=== PATIENT | female | born 1950 | race Caucasian/White ===

== ENCOUNTER 2019-02-23 18:12 | Inpatient (IN) ==
[2019-02-23] MEDS ORDERED: HYDROmorphone INJ 0.5 MG/0.5 ML SYR IV PRN (18:31)
[2019-02-23] MEDS ORDERED: SODIUM CHLORIDE 0.9% 1000ML 1,000 ML IV SCH (18:45)
[2019-02-23 19:30] LABS: Basophils # (auto) 0.01 K/uL (0-0.2); Basophils % (auto) 0.1 %; Eosinophils # (auto) 0.05 K/uL (0-0.5); Eosinophils % (auto) 0.5 %; Hematocrit (blood only) 32.3 % (37-47); Hemoglobin 10.8 g/dL (12.0-16.0); Immature Granulocytes # (auto) 0.04 K/uL (0.00-0.02); Immature Granulocytes % (auto) 0.4 %; Lymphocytes # (auto) 1.64 K/uL (1.2-3.4); Lymphocytes % (auto) 16.6 %; Mean Corpuscular Hgb Conc 33.4 g/dL (32-36); Mean Corpuscular Volume 81.6 fL (80-100); Monocytes # (auto) 0.55 K/uL (0.11-0.59); Monocytes % (auto) 5.6 %; Neutrophils % (auto) 76.8 %; Platelet Count 205 K/uL (130-400); RDW Standard Deviation 47.9 fL (36.4-46.3); Red Blood Count 3.96 M/uL (4.2-5.4); White Blood Count 9.89 K/uL (4.8-10.8)
--- NOTE | 2019-02-23 19:31 | XRay Report ---
SINGLE VIEW CHEST CLINICAL HISTORY: Fall. Left hip pain. FINDINGS: An AP, portable, upright chest radiograph is compared to study dated 08/17/2015. The examinat ion is degraded by portable technique and patient rotation. The heart is top normal for projection and there is atherosclerotic calcification of the thoracic aorta. The lungs and pleural spaces are cl ear. No pneumothorax is seen. The skeletal structures are osteopenic. The bony thorax is grossly inta ct. IMPRESSION: No active disease in the chest. Electronically signed by: Crow Harris M.D. 02/23/2019 7:30 PM
[2019-02-23 19:40] LABS: Partial Thromboplastin Ratio 0.8; Partial Thromboplastin Time 22.2 Seconds (21.0-31.0)
[2019-02-23 19:46] LABS: BUN Creatinine Ratio 23.4 (10-20); Calcium 9.2 mg/dl (8.5-10.1); Creatinine Clr Calc Pharmacy 47.8 ml/min; Est GFR (African American) 53.7; Est GFR (Non-African American) 46.4
--- NOTE | 2019-02-23 20:22 | XRay Report ---
SINGLE VIEW PELVIS; 2 VIEWS LEFT HIP CLINICAL HISTORY: Fall with left hip pain. FINDINGS: An AP supine view of the pelvis as well as AP and crosstable lateral views of the left hip are obtained. No prior studies are available for comparison at the time of dictation. The skeletal st ructures are osteopenic. There is a mildly distracted intertrochanteric fracture of the left femur wi th overlying soft tissue edema. There are age indeterminant left pubic ring fractures. The right hip appears maintained. Mild to moderate degenerative joint space narrowing seen in the hips. Degenerativ e sclerosis is noted in the sacroiliac joints. There is lumbosacral spondylosis and scoliosis. No bow el obstruction is seen. Moderate colonic fecal retention is observed. Pelvic phleboliths are identifi ed. IMPRESSION: 1. There is a mildly distracted intertrochanteric fracture of the left femur. 2. There are age indeterminant left pubic ring fractures. 3. Osteopenia and degenerative change as above. Electronically signed by: Crow Harris M.D. 02/23/2019 8:21 PM
[2019-02-23 20:38] LABS: Appearance Urine Clear (Clear); Bacteria Urine Automated Negative (Negative); Bilirubin Urine Negative (Negative); Blood Urine Negative (Negative); Color Urine Yellow; Epithelial Cell Urine Auto >30 /lpf (0-5); Glucose Urine UA Negative (Negative); Ketones Urine Negative (Negative); Leukocyte Esterase Urine 1+ (Negative); Nitrite Urine Negative (Negative); Protein Urine Negative (Negative); RBC Urine Automated 0-4 /hpf (0-4); Urobilinogen Urine Negative (Negative)
[2019-02-23] MEDS: HYDROmorphone INJ 0.5 MG/0.5 ML SYR IV PRN ×2 (20:45→21:56)
[2019-02-23 21:17] LABS: T4 Free Thyroxine 1.02 ng/dl (0.8-1.6)
--- NOTE | 2019-02-23 21:28 | History & Physical Report ---
Date of Service February 23, 2019 Assessment & Plan (1) Closed intertrochanteric fracture of left hip: Secondary to mechanical fall hypertension, stable hyperlipidemia on statin Rx DM 2 insulin requiring, elevated lately at home likely related to steroid Rx taper initiated for PMR/polyarthritis Recent outpatient hemoglobin A1c of 7.2 last November 2018 anxiety/mood disorder, at baseline chronic anemia, hemoglobin close to baseline (outpatient work-up showed some degree of iron deficiency) [facility] Orthopedics consult RE left hip fracture (Dr. Mai on for unassigned consults as per ER provider.) No medical contraindication to surgery if recommended by Orthopedics and patient/family agreeable to attendant procedural benefits and risks. Basal insulin adjusted for n.p.o. status after midnight in preparation for possible surgery, ISS BG goal 1 40-1 80, Carb count coverage once diet advanced, update hemoglobin A1c given recent blood sugar elevation at home) DVT prophylaxis. SCDs for now (Recommend pharmacologic anticoagulation pending Orthopedics evaluation.) Full code Patient requests her daughter to be updated of plan of care. Ms. Maria Antonia Romero, [phone]. History of Present Illness Chief Complaint: Fall, left hip pain Primary Care Provider: Jose Alfaro MD History obtained from patient, family, and records. Medical history significant for hypertension, hyperlipidemia, DM 2 insulin requiring, anxiety/mood disorder, chronic anemia (baseline hemoglobin of 11), PMR/inflammatory polyarthritis currently on steroid taper. Recent confinement August 2015 for chest pain. Stress test negative. Patient was walking outside her home today when she lost her balance subsequently landing on her left side. Patient noted left upper extremity and achy left hip pain worse with motion. No chest pain, S OB, syncope/LOC, head trauma. Medical History as above Bad side effects from recent steroid prescription as per patient account. Surgical History : BTL, tonsillectomy/adenectomy Baseline Functionality : Still able to do housework at home without rest/exertional chest pain, S OB prior to injury Family History : Heart disease, depression Personal/Social history : Non-smoker, no EtOH intake, retired [email or web address] employee Allergies Allergy/AdvReac Type Severity Reaction Status Date / Time No Known Allergies Allergy Verified 02/24/19 10:36 Home Medications Home Medications Medication Instructions Recorded Confirmed Type allopurinol 200 mg PO QAM 11/17/18 02/24/19 History aspirin 81 mg PO QAM 11/17/18 02/24/19 History cinnamon bark [Cinnamon] 500 mg PO QAM 11/17/18 02/24/19 History fenofibrate nanocrystallized 48 mg PO QAM 11/17/18 02/24/19 History insulin degludec-liraglutide 40 units SUBCUT HS 11/17/18 02/24/19 History [Xultophy 100/3.6] metformin 1,000 mg PO BID 11/17/18 02/24/19 History rosuvastatin 10 mg PO QAM 11/17/18 02/24/19 History sertraline 100 mg PO QAM 11/17/18 02/24/19 History lisinopril 20 mg PO QAM 02/23/19 02/24/19 History metoprolol tartrate 50 mg PO QAM 02/23/19 02/24/19 History prednisone See Rx Instructions .ROUTE .COMPLEX 02/23/19 02/24/19 History Past Med/Surg History Medical History Diabetes mellitus (Chronic) HTN (hypertension) (Chronic) HLD (hyperlipidemia) (Chronic) CKD (chronic kidney disease), stage III (Chronic) Depression (Chronic) Gout (Chronic) Surgical History S/P tubal ligation (Chronic) S/P tonsillectomy (Chronic) History of colonoscopy (Chronic) "fair prep diveticulosis, polyp path shows adenomatous tissue repeat in 5 years 2010" Family History Other No pertinent family history Social History Preferred Language: Occitan Communication Ability: Effective 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 Beliefs That Will Affect Care: None marital status: Current Living Situation: Alone current occupational status: retired Other Information That Helps Us Care for You: No Feels Safe at Home: Yes Smoking Status: Never smoker Do You Dip or Chew Tobacco: No ; Second Hand Exposure: No ; Tobacco Cessation Education Requested by Patient: No Hx Alcohol Use: Yes Alcohol type: wine Hx Substance Use: No Review of Systems Review of Systems: As per HPI, all 10 systems reviewed, all other ROS negative Physical Exam Physical Exam: GENERAL: uncomfortable, pleasant, no respiratory distress SKIN: Pallor , warm HEENT: Bespectacled, pale palpebral conjunctivae, no ptosis, dry buccal mucosa NECK : Supple, no tenderness CHEST : CTA, no tenderness HEART : RRR, no obvious murmurs ABDOMEN: Some distention, nontender EXTREMITIES : Right hip tenderness and rotation, abrasion left upper extremity, no other conspicuous deformities noted NEUROLOGIC : Coherent, no facial asymmetry, no other gross focality Results & Data Vital Signs (Past 12 Hours) Vital Signs Temp Pulse Pulse Resp BP BP Pulse Ox 02/23/19 20:26 89 16 156/99 H 96 02/23/19 18:25 36.8 C 86 17 117/96 95 Laboratory Results Laboratory Results WBC 9.89 K/uL (4.8-10.8) 02/23/19 19:15 RBC 3.96 M/uL (4.2-5.4) L 02/23/19 19:15 Hgb 10.8 g/dL (12.0-16.0) L 02/23/19 19:15 Hct 32.3 % (37-47) L 02/23/19 19:15 MCV 81.6 fL (80-100) 02/23/19 19:15 MCH 27.3 pg (25-34) 02/23/19 19:15 MCHC 33.4 g/dL (32-36) 02/23/19 19:15 RDW Std Deviation 47.9 fL (36.4-46.3) H 02/23/19 19:15 RDW Coeff of Grabiel 16.0 % (11.5-14.5) H 02/23/19 19:15 Plt Count 205 K/uL (130-400) 02/23/19 19:15 MPV 10.0 fL (7.4-10.4) 02/23/19 19:15 Immature Gran % (Auto) 0.4 % 02/23/19 19:15 Neut % (Auto) 76.8 % 02/23/19 19:15 Lymph % (Auto) 16.6 % 02/23/19 19:15 [place] % (Auto) 5.6 % 02/23/19 19:15 Eos % (Auto) 0.5 % 02/23/19 19:15 Baso % (Auto) 0.1 % 02/23/19 19:15 Immature Gran # (Auto) 0.04 K/uL (0.00-0.02) H 02/23/19 19:15 Neut # (Auto) 7.60 K/uL (1.4-6.5) H 02/23/19 19:15 Lymph # (Auto) 1.64 K/uL (1.2-3.4) 02/23/19 19:15 [place] # (Auto) 0.55 K/uL (0.11-0.59) 02/23/19 19:15 Eos # (Auto) 0.05 K/uL (0-0.5) 02/23/19 19:15 Baso # (Auto) 0.01 K/uL (0-0.2) 02/23/19 19:15 PT 10.0 Seconds (9.0-12.0) 02/23/19 19:15 INR 1.0 (0.9-1.1) 02/23/19 19:15 APTT 22.2 Seconds (21.0-31.0) 02/23/19 19:15 PTT Ratio 0.8 02/23/19 19:15 Sodium 141 mmol/L (136-145) 02/23/19 19:15 Potassium 4.0 mmol/L (3.5-5.1) 02/23/19 19:15 Chloride 107 mmol/L (98-107) 02/23/19 19:15 Carbon Dioxide 27 mmol/L (21-32) 02/23/19 19:15 Anion Gap 7.0 (3-11) 02/23/19 19:15 BUN 28 mg/dl (7-18) H 02/23/19 19:15 Creatinine 1.18 mg/dl (0.6-1.2) 02/23/19 19:15 Est Cr Clr Drug Dosing 47.8 ml/min 02/23/19 19:15 Est GFR ( Amer) 53.7 02/23/19 19:15 Est GFR (Non-Af Amer) 46.4 02/23/19 19:15 BUN/Creatinine Ratio 23.4 (10-20) H 02/23/19 19:15 Glucose 155 mg/dl (70-99) H 02/23/19 19:15 POC Glucose 137 (70-99) H 02/23/19 18:30 Calcium 9.2 mg/dl (8.5-10.1) 02/23/19 19:15 Magnesium 2.1 mg/dl (1.8-2.4) 02/23/19 19:15 TSH 5.150 uIu/ml (0.300-4.500) H 02/23/19 19:15 Free T4 1.02 ng/dl (0.8-1.6) 02/23/19 19:15 Urine Color Yellow 02/23/19 20:05 Urine Appearance Clear (Clear) 02/23/19 20:05 Urine pH 6.0 (4.5-7.5) 02/23/19 20:05 Ur Specific [place] 1.020 (1.000-1.030) 02/23/19 20:05 Urine Protein Negative (Negative) 02/23/19 20:05 Urine Glucose (UA) Negative (Negative) 02/23/19 20:05 Urine Ketones Negative (Negative) 02/23/19 20:05 Urine Blood Negative (Negative) 02/23/19 20:05 Urine Nitrite Negative (Negative) 02/23/19 20:05 Urine Bilirubin Negative (Negative) 02/23/19 20:05 Urine Urobilinogen Negative (Negative) 02/23/19 20:05 Ur Leukocyte Esterase 1+ (Negative) H 02/23/19 20:05 Urine WBC (Auto) 5-10 /hpf (0-5) H 02/23/19 20:05 Urine RBC (Auto) 0-4 /hpf (0-4) 02/23/19 20:05 U Hyaline Cast (Auto) 1-5 /lpf (0-5) 02/23/19 20:05 U Epithel Cells (Auto) >30 /lpf (0-5) H 02/23/19 20:05 Urine Bacteria (Auto) Negative (Negative) 02/23/19 20:05 Blood Type O Positive 02/23/19 19:15 Antibody Screen NEGATIVE 02/23/19 19:15 Diagnostic Findings Hip/pelvis x-ray: 1. There is a mildly distracted intertrochanteric fracture of the left femur. 2. There are age indeterminant left pubic ring fractures. 3. Osteopenia and degenerative change as above. Chest x-ray showed no active disease EKG as per my interpretation : Rate 95, NSR, no ischemia (1) Closed intertrochanteric fracture of left hip Encounter type: initial encounter Fracture alignment: nondisplaced Qualified Code(s): S72.145A - Nondisplaced intertrochanteric fracture of left femur, initial encounter for closed fracture
[2019-02-23] MEDS ORDERED: PROMETHAZINE HCL 12.5 MG in SODIUM CHLORIDE 0.9% 50 ML IV PRN (22:17)
[2019-02-23] MEDS ORDERED: GLUCOSE 40% GEL 15 GM TUBE PO PRN (22:17)
[2019-02-23] MEDS ORDERED: CARBOHYDRATES FOR HYPOGLYCEMIA PO PRN (22:17)
[2019-02-23] MEDS ORDERED: DEXTROSE 50% 50 ML SYRINGE IV PRN (22:17)
[2019-02-23] MEDS ORDERED: NALOXONE HCL 0.4 MG/1 ML VIAL/CARP IV PRN (22:17)
[2019-02-23] MEDS ORDERED: INSULIN ASPART 100 UNITS/ML 3 ML PEN SC SCH (22:17)
[2019-02-23] MEDS ORDERED: GLUCAGON FOR INJ 1 MG VIAL SQ PRN (22:17)
[2019-02-23] MEDS ORDERED: MAGNESIUM HYDROXIDE SUSP 30 ML UDC PO PRN (22:17)
[2019-02-23] MEDS ORDERED: GLUCOSE 10 TABS/TUBE PO PRN (22:17)
[2019-02-23] MEDS ORDERED: BISACODYL 10 MG SUPP PR PRN (22:17)
--- NOTE | 2019-02-23 23:30 | Emergency Department Note ---
Entered by Florin Flores acting as a scribe for ED Provider Note CHIEF COMPLAINT: Fall HISTORY OF PRESENT ILLNESS: The patient is a 69 year old female who presents to the Emergency Room with complaints of constant left hip pain that started after falling outside today just prior to arrival. The patient states she was walking up a driveway when she lost her balance and fell on her left side. The patient notes she could not move after the fall because of the pain so EMS was called. The patient denies any head trauma during the incident. The patient notes that she was in the ED a few days because her sugar was elevated, however when she took it today it was normal. Pt denies LOC, headache, fevers, chills, diaphoresis, visual changes, neck pain, chest pain, breathing difficulties, nausea, vomiting, abdominal pain, back pain, melena, hematochezia, urinary symptoms, numbness, weakness, lymphadenopathy, rash, or other complaints. REVIEW OF SYSTEMS: See HPI for pertinent positives and negatives. A total of ten systems were reviewed and were otherwise negative. PMHx/PSHx: HTN, HLD, CKD, DM, Gout, Depression SOCIAL HISTORY: Patient lives at home. PHYSICAL EXAM: GENERAL: Awake, alert, well-appearing, in no distress HENT: Normocephalic, atraumatic. Oropharynx unremarkable. EYES: Normal conjunctiva. Sclera non-icteric. NECK: Inspection normal. Non-tender. Supple. No nuchal rigidity. FROM. No masses. RESPIRATORY: Clear to auscultation. No wheezes. No rales. Normal respiratory effort. CARDIAC: Normal rate. Normal rhythm. No murmurs. No rubs. Extremities warm and well perfused. Pulses equal. No JVD. GI: Soft, non-distended. No tenderness to palpation. No rebound or guarding. No masses. RECTAL: Deferred. MUSCULOSKELETAL: Chest examination reveals no tenderness. The back is symmetrical on inspection without obvious abnormality. There is no CVA tenderness to palpation. No joint edema. Shortened external rotation of the left leg. Tenderness over the left hip. Abrasion to the left elbow with no gilbert tenderness. LOWER EXTREMITIES: Calves are equal size bilaterally and non-tender. No edema. No discoloration. NEURO: Normal sensorium. No sensory or motor deficits noted. SKIN: No rash or jaundice noted. EMERGENCY DEPARTMENT COURSE: 1825: Past medical records reviewed. The patient was evaluated in room C10, and a complete history and physical examination were performed. 1852: I reevaluated the patient and she would like another dose of pain medication. 2018: I updated the patient on her imaging results. We also discussed the treat ment plan and she fully understands and is agreeable with the plan. 2020: I spoke to Dr. Chester [facility]ist about the patient's case. He will be accepting the patient for further evaluation. Dr. Mai - Orthopedics was made aware of the case. MEDICAL DECISION MAKING: C10 Prior records reviewed. Patient was recently here for hyperglycemia. She notes her sugars have been controlled since discharge. Triage Nursing notes reviewed and agree them. The patient's history was concerning for accidental traumatic injury. Differential diagnosis: Etiologies such as fracture, dislocation, neurovascular compromise, compartment syndrome, soft tissue injury, as well as others were entertained. Physical examination: Consistent with an isolated hip injury. ER treatment provided: IV lock Zofran 4mg IV Dilaudid IV NPO Bedrest On reassessment the patient felt better. Diagnostics interpreted by me: The labs revealed an unremarkable CBC, coags, and chemistry panel. Imaging studies: Chest imaging negative. Left hip x-ray shows an intertrochanteric fracture. The patient has an isolated hip fracture and will need admission to the hospital. Consultation: [facility] was notified of the patient's fracture. A consultation was placed with the [facility]. The case was discussed and diagnostics were reviewed. The patient was evaluated in the ER for further treatment. IMPRESSION: Left intertrochanteric hip fracture PLAN: Being evaluated by hospitalist Jocelyn gutierrez's documentation has been prepared under my direction and personally reviewed by me in its entirety. I confirm that the note above accurately reflects all work, treatment, procedures, and medical decision making performed by me. 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 Beliefs That Will Affect Care: None marital status: Current Living Situation: Alone current occupational status: retired Other Information That Helps Us Care for You: No Feels Safe at Home: Yes Smoking Status: Never smoker Do You Dip or Chew Tobacco: No ; Second Hand Expos ure: No ; Tobacco Cessation Education Requested by Patient: No Hx Alcohol Use: Yes Alcohol type: wine Hx Substance Use: No Results & Data Vital Signs Vital Signs - 24 hr 02/23/19 18:25 02/23/19 20:26 Temperature 36.8 C Temperature Source Oral Sepsis Recent Fever Within 48 Hours No Sepsis Action Taken by Nursing No Action Required Pulse Rate 86 Pulse Rate [Right] 89 Pulse Rhythm [Right] Regular Pulse Strength [Right] Normal Respiratory Rate 17 16 Respiratory Effort / Characteristics Non-Labored Spontaneous Respiratory Depth Normal Blood Pressure 117/96 Blood Pressure [Right Arm] 156/99 H Blood Pressure Mean 103 Blood Pressure Mean [Right Arm] 118 Pulse Oximetry 95 96 Oxygen Delivery Method Room Air Room Air Home Medications Current Medication List: was personally reviewed by me Laboratory Data Attestation: I reviewed the patient's lab results. Result diagrams: 02/23/19 19:15 02/23/19 19:15 Lab Results 02/23/19 02/23/19 02/23/19 Range/Units 18:30 19:15 19:15 WBC 9.89 (4.8-10.8) K/uL RBC 3.96 L (4.2-5.4) M/uL Hgb 10.8 L (12.0-16.0) g/dL Hct 32.3 L (37-47) % MCV 81.6 (80-100) fL MCH 27.3 (25-34) pg MCHC 33.4 (32-36) g/dL RDW Std Deviation 47.9 H (36.4-46.3) fL RDW Coeff of Grabiel 16.0 H (11.5-14.5) % Plt Count 205 (130-400) K/uL MPV 10.0 (7.4-10.4) fL Immature Gran % (Auto) 0.4 % Neut % (Auto) 76.8 % Lymph % (Auto) 16.6 % Terry % (Auto) 5.6 % Eos % (Auto) 0.5 % Baso % (Auto) 0.1 % Immature Gran # (Auto) 0.04 H (0.00-0.02) K/uL Neut # (Auto) 7.60 H (1.4-6.5) K/uL Lymph # (Auto) 1.64 (1.2-3.4) K/uL Terry # (Auto) 0.55 (0.11-0.59) K/uL Eos # (Auto) 0.05 (0-0.5) K/uL Baso # (Auto) 0.01 (0-0.2) K/uL PT 10.0 (9.0-12.0) Seconds INR 1.0 (0.9-1.1) APTT 22.2 (21.0-31.0) Seconds PTT Ratio 0.8 Sodium (136-145) mmol/L Potassium (3.5-5.1) mmol/L Chloride (98-107) mmol/L Carbon Dioxide (21-32) mmol/L Anion Gap (3-11) BUN (7-18) mg/dl Creatinine (0.6-1.2) mg/dl Est Cr Clr Drug Dosing ml/min Est GFR ( Amer) Est GFR (Non-Af Amer) BUN/Creatinine Ratio (10-20) Glucose (70-99) mg/dl POC Glucose 137 H (70-99) Calcium (8.5-10.1) mg/dl Magnesium (1.8-2.4) mg/dl TSH (0.300-4.500) uIu/ml Free T4 (0.8-1.6) ng/dl Urine Color Urine Appearance (Clear) Urine pH (4.5-7.5) Ur Specific [place]branch (1.000-1.030) Urine Protein (Negative) Urine Glucose (UA) (Negative) Urine Ketones (Negative) Urine Blood (Negative) Urine Nitrite (Negative) Urine Bilirubin (Negative) Urine Urobilinogen (Negative) Ur Leukocyte Esterase (Negative) Urine WBC (Auto) (0-5) /hpf Urine RBC (Auto) (0-4) /hpf U Hyaline Cast (Auto) (0-5) /lpf U Epithel Cells (Auto) (0-5) /lpf Urine Bacteria (Auto) (Negative) Blood Type Antibody Screen 02/23/19 02/23/19 02/23/19 Range/Units 19:15 19:15 19:15 WBC (4.8-10.8) K/uL RBC (4.2-5.4) M/uL Hgb (12.0-16.0) g/dL Hct (37-47) % MCV (80-100) fL MCH (25-34) pg MCHC (32-36) g/dL RDW Std Deviation (36.4-46.3) fL RDW Coeff of Grabiel (11.5-14.5) % Plt Count (130-400) K/uL MPV (7.4-10.4) fL Immature Gran % (Auto) % Neut % (Auto) % Lymph % (Auto) % Terry % (Auto) % Eos % (Auto) % Baso % (Auto) % Immature Gran # (Auto) (0.00-0.02) K/uL Neut # (Auto) (1.4-6.5) K/uL Lymph # (Auto) (1.2-3.4) K/uL Terry # (Auto) (0.11-0.59) K/uL Eos # (Auto) (0-0.5) K/uL Baso # (Auto) (0-0.2) K/uL PT (9.0-12.0) Seconds INR (0.9-1.1) APTT (21.0-31.0) Seconds PTT Ratio Sodium 141 (136-145) mmol/L Potassium 4.0 (3.5-5.1) mmol/L Chloride 107 (98-107) mmol/L Carbon Dioxide 27 (21-32) mmol/L Anion Gap 7.0 (3-11) BUN 28 H (7-18) mg/dl Creatinine 1.18 (0.6-1.2) mg/dl Est Cr Clr Drug Dosing 47.8 ml/min Est GFR ( Amer) 53.7 Est GFR (Non-Af Amer) 46.4 BUN/Creatinine Ratio 23.4 H (10-20) Glucose 155 H (70-99) mg/dl POC Glucose (70-99) Calcium 9.2 (8.5-10.1) mg/dl Magnesium 2.1 (1.8-2.4) mg/dl TSH (0.300-4.500) uIu/ml Free T4 (0.8-1.6) ng/dl Urine Color Urine Appearance (Clear) Urine pH (4.5-7.5) Ur Specific Drybranch (1.000-1.030) Urine Protein (Negative) Urine Glucose (UA) (Negative) Urine Ketones (Negative) Urine Blood (Negative) Urine Nitrite (Negative) Urine Bilirubin (Negative) Urine Urobilinogen (Negative) Ur Leukocyte Esterase (Negative) Urine WBC (Auto) (0-5) /hpf Urine RBC (Auto) (0-4) /hpf U Hyaline Cast (Auto) (0-5) /lpf U Epithel Cells (Auto) (0-5) /lpf Urine Bacteria (Auto) (Negative) Blood Type O Positive Antibody Screen NEGATIVE 02/23/19 02/23/19 Range/Units 19:15 20:05 WBC (4.8-10.8) K/uL RBC (4.2-5.4) M/uL Hgb (12.0-16.0) g/dL Hct (37-47) % MCV (80-100) fL MCH (25-34) pg MCHC (32-36) g/dL RDW Std Deviation (36.4-46.3) fL RDW Coeff of Grabiel (11.5-14.5) % Plt Count (130-400) K/uL MPV (7.4-10.4) fL Immature Gran % (Auto) % Neut % (Auto) % Lymph % (Auto) % Terry % (Auto) % Eos % (Auto) % Baso % (Auto) % Immature Gran # (Auto) (0.00-0.02) K/uL Neut # (Auto) (1.4-6.5) K/uL Lymph # (Auto) (1.2-3.4) K/uL Terry # (Auto) (0.11-0.59) K/uL Eos # (Auto) (0-0.5) K/uL Baso # (Auto) (0-0.2) K/uL PT (9.0-12.0) Seconds INR (0.9-1.1) APTT (21.0-31.0) Seconds PTT Ratio Sodium (136-145) mmol/L Potassium (3.5-5.1) mmol/L Chloride (98-107) mmol/L Carbon Dioxide (21-32) mmol/L Anion Gap (3-11) BUN (7-18) mg/dl Creatinine (0.6-1.2) mg/dl Est Cr Clr Drug Dosing ml/min Est GFR ( Amer) Est GFR (Non-Af Amer) BUN/Creatinine Ratio (10-20) Glucose (70-99) mg/dl POC Glucose (70-99) Calcium (8.5-10.1) mg/dl Magnesium (1.8-2.4) mg/dl TSH 5.150 H (0.300-4.500) uIu/ml Free T4 1.02 (0.8-1.6) ng/dl Urine Color Yellow Urine Appearance Clear (Clear) Urine pH 6.0 (4.5-7.5) Ur Specific Drybranch 1.020 (1.000-1.030) Urine Protein Negative (Negative) Urine Glucose (UA) Negative (Negative) Urine Ketones Negative (Negative) Urine Blood Negative (Negative) Urine Nitrite Negative (Negative) Urine Bilirubin Negative (Negative) Urine Urobilinogen Negative (Negative) Ur Leukocyte Esterase 1+ H (Negative) Urine WBC (Auto) 5-10 H (0-5) /hpf Urine RBC (Auto) 0-4 (0-4) /hpf U Hyaline Cast (Auto) 1-5 (0-5) /lpf U Epithel Cells (Auto) >30 H (0-5) /lpf Urine Bacteria (Auto) Negative (Negative) Blood Type Antibody Screen Administered Medications Discontinued Medications Hydromorphone HCl (Dilaudid) 0.25 mg IV Q20M PRN PRN Reason: Moderate Pain (Rating 3,4,5,6) Stop: 03/09/19 18:30 Last Admin: 02/23/19 19:01 Dose: 0.25 mg Documented by: [id number] Hydromorphone HCl (Dilaudid) 0.5 mg IV Q20M PRN PRN Reason: Severe Pain (Rating 7,8,9,10) Stop: 03/09/19 18:30 Last Admin: 02/23/19 21:56 Dose: 0.5 mg Documented by: [id number] Admin: 02/23/19 20:45 Dose: 0.5 mg Documented by: [id number] Sodium Chloride (Nss 1000ml) 1,000 mls @ 75 mls/hr IV .[id number] CARLA Stop: 02/24/19 08:04 Last Admin: 02/23/19 19:01 Dose: 75 mls/hr Documented by: [id number] Imaging Data Radiologist's Impression: Radiology results as stated below per my review and the radiologist's interpretation: SINGLE VIEW CHEST CLINICAL HISTORY: Fall. Left hip pain. FINDINGS: An AP, portable, upright chest radiograph is compared to study dated 08/17/2015. The examination is degraded by portable technique and patient rotation. The heart is top normal for projection and there is atherosclerotic calcification of the thoracic aorta. The lungs and pleural spaces are clear. No pneumothorax is seen. The skeletal structures are osteopenic. The bony thorax is grossly intact. IMPRESSION: No active disease in the chest. Electronically signed by: Crow Harris M.D. 02/23/2019 7:30 PM SINGLE VIEW PELVIS; 2 VIEWS LEFT HIP CLINICAL HISTORY: Fall with left hip pain. FINDINGS: An AP supine view of the pelvis as well as AP and crosstable lateral views of the left hip are obtained. No prior studies are available for comparison at the time of dictation. The skeletal structures are osteopenic. There is a mildly distracted intertrochanteric fracture of the left femur with overlying soft tissue edema. There are age indeterminant left pubic ring fractures. The right hip appears maintained. Mild to moderate degenerative joint space narrowing seen in the hips. Degenerative sclerosis is noted in the sacroiliac joints. There is lumbosacral spondylosis and scoliosis. No bowel obstruction is seen. Moderate colonic fecal retention is observed. Pelvic phleboliths are identified. IMPRESSION: 1. There is a mildly distracted intertrochanteric fracture of the left femur. 2. There are age indeterminant left pubic ring fractures. 3. Osteopenia and degenerative change as above. Electronically signed by: Crow Harris M.D. 02/23/2019 8:21 PM ECG Data Attestation: I personally reviewed and interpreted this ECG as follows: Indication: other (Fall) Rate (beats per minute): 97 Rhythm: normal sinus Findings: no PAC, no PVC, no ST depression, no ST elevation and no ectopy Blood Pressure Blood Pressure Findings: Elevated blood pressure Blood Pressure Disposition: further management by hospitalist Discharge Plan Visit Data *Final* Discharge Date/Time: 02/23/19 21:53 Chief Complaint: Hip Pain Stated Complaint: FALL, L HIP & LEG PAIN ED Provider: Kevon oGodrich Discharge Problem: Closed intertrochanteric fracture of left hip Patient Disposition: Admitted As Inpatient Discharge Instructions Interventions: ED Discharge Assessment Last Done: 02/23/19 21:53 Discharge Problem: Closed intertrochanteric fracture of left hip Qualifiers: Encounter type: initial encounter Fracture alignment: nondisplaced Qualified Code(s): S72.145A - Nondisplaced intertrochanteric fracture of left femur, initial encounter for closed fracture The scribe's documentation has been prepared under my direction and personally reviewed by me in its entirety. I confirm that the note above accurately reflects all work, treatment, procedures, and medical decision making performed by me.
[2019-02-23] MEDS: INSULIN GLARGINE SOLOSTAR 100 UNITS/ML 3 ML PEN SQ SCH (23:34)
[2019-02-23] MEDS: ACETAMINOPHEN 325 MG TAB PO PRN (23:45)
[2019-02-23] MEDS ORDERED: Nursing to Pharmacy Communication ONE (23:51)
[2019-02-24] MEDS ORDERED: SODIUM CHLORIDE 0.45 % 1,000 ML IV SCH
[2019-02-24] MEDS: TRAMADOL HCL 50 MG TABLET PO PRN ×3 (01:12→23:44)
[2019-02-24] MEDS: INSULIN ASPART 100 UNITS/ML 3 ML PEN SC SCH ×4 (06:16→20:53)
[2019-02-24 06:30] LABS: Estimated Average Glucose 186 mg/dl; Hemoglobin A1C 8.1 % (4.5-5.6)
[2019-02-24 07:59] LABS: Basophils # (auto) 0.03 K/uL (0-0.2); Basophils % (auto) 0.4 %; Eosinophils # (auto) 0.17 K/uL (0-0.5); Hematocrit (blood only) 29.1 % (37-47); Hemoglobin 9.5 g/dL (12.0-16.0); Immature Granulocytes # (auto) 0.02 K/uL (0.00-0.02); Immature Granulocytes % (auto) 0.2 %; Lymphocytes # (auto) 1.52 K/uL (1.2-3.4); Lymphocytes % (auto) 17.9 %; Mean Corpuscular Hgb Conc 32.6 g/dL (32-36); Mean Corpuscular Volume 82.2 fL (80-100); Monocytes % (auto) 5.9 %; Neutrophils # (auto) 6.26 K/uL (1.4-6.5); Neutrophils % (auto) 73.6 %; Platelet Count 153 K/uL (130-400); RDW Coefficient of Variation 16.2 % (11.5-14.5); RDW Standard Deviation 48.8 fL (36.4-46.3); Red Blood Count 3.54 M/uL (4.2-5.4)
--- NOTE | 2019-02-24 08:24 | Orthopedic Consultation ---
Date of Consultation February 24, 2019 Assessment & Plan (1) Closed intertrochanteric fracture of left hip: Patient will require a left trochanteric femoral nailing. Per the admitting physician, patient is medically stable for procedure. We will add her onto Dr. Garcia's surgical schedule today. Thank you for this consult. History of Present Illness Reason for Consultation: Left hip fracture Attending Physician: Federico Rasmussen MD History of Present Illness Patient is a 69-year-old white female who lives alone. She is accompanied by her family member. Yesterday she was doing her laundry and was carrying a load of laundry when she lost her balance and fell to the floor. She had immediate pain in her left hip and groin and was unable to ambulate. She denies any shortness of breath, chest pain, lightheadedness prior to or after the fall. She denies any loss of consciousness. She denies hitting her head. She is brought to the emergency room [facility] at [facility] and x-rays were taken. Was found that she had a left intertrochanteric hip fracture. She was admitted by the [facility] Hospitalist service and we have been asked to see her for her left hip fracture. Currently she is awake and alert. And is oriented to person and place. She is having mild pain in the left hip due to fracture. Allergies Allergy/AdvReac Type Severity Reaction Status Date / Time No Known Allergies Allergy Verified 02/23/19 19:06 Home Medications Home Medications Medication Instructions Recorded Confirmed Type allopurinol 200 mg PO QAM 11/17/18 02/23/19 History aspirin 81 mg PO QAM 11/17/18 02/23/19 History cinnamon bark [Cinnamon] 500 mg PO QAM 11/17/18 02/23/19 History fenofibrate nanocrystallized 48 mg PO QAM 11/17/18 02/23/19 History insulin degludec-liraglutide 40 units SUBCUT HS 11/17/18 02/23/19 History [Xultophy 100/3.6] metformin 1,000 mg PO BID 11/17/18 02/23/19 History rosuvastatin 10 mg PO QAM 11/17/18 02/23/19 History sertraline 100 mg PO QAM 11/17/18 02/23/19 History lisinopril 20 mg PO QAM 02/23/19 02/23/19 History metoprolol tartrate 50 mg PO QAM 02/23/19 02/23/19 History prednisone See Rx Instructions .ROUTE .COMPLEX 02/23/19 02/23/19 History Patient History Medical History Diabetes mellitus (Chronic) HTN (hypertension) (Chronic) HLD (hyperlipidemia) (Chronic) CKD (chronic kidney disease), stage III (Chronic) Depression (Chronic) Gout (Chronic) Surgical History S/P tubal ligation (Chronic) S/P tonsillectomy (Chronic) History of colonoscopy (Chronic) "fair prep diveticulosis, polyp path shows adenomatous tissue repeat in 5 years 2010" Family History Other No pertinent family history Social History Preferred Language: Citizen Of [place] Communication Ability: Effective 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 No range of motion is done with the left lower extremity at this time other than her left ankle and toes due to fracture in the hip. She has good range of motion of the left ankle and toes this time. There is no overt areas of bruising over the lateral hip. She has some mild swelling in the left thigh compared to the right. Right lower extremity is essentially unaffected and she is nontender at the right hip knee and ankle. Range of motion within normal limits. She states that she has some slight tingling in both of her toes at this time. Upper extremities are unaffected at this time and she has good range of motion of her shoulders elbows and wrist. And all are nontender. Distal pulses are equal bilaterally of the upper and lower extremities. She has no neck pain on palpation and has good range of motion of the neck at this time. She denies any thoracic or lumbar pain at this time. There is no gross motor or sensory loss seen at this time. Results & Data Vital Signs (Past 12 Hours) Vital Signs Temp Pulse Pulse Resp BP BP Pulse Ox 02/23/19 23:15 36.9 C 90 16 155/69 H 99 02/23/19 22:22 36.7 C 88 18 157/78 H 96 02/23/19 21:53 85 16 119/74 96 02/23/19 20:26 89 16 156/99 H 96 Diagnostic Findings atient: GEN ISIDRO Date: 02/23/19 MR#: [id number]: [address] Acct ID:[id number]: Date: 1950[facility] Zip: [place] [address] Age: 69Location: ED Sex: F Room/Bed: Att Phy: Diagnosis: FALL, L HIP & LEG PAIN Devorah Phy: Jose Alfaro MDService Date: 02/23/19 Fam Phy: Interpreting Phy: Crow Harris MD Admit Phy: Ordering Phy: Kevon Goodrich MD cc: ~ SINGLE VIEW PELVIS; 2 VIEWS LEFT HIP CLINICAL HISTORY: Fall with left hip pain. FINDINGS: An AP supine view of the pelvis as well as AP and crosstable lateral views of the left hip are obtained. No prior studies are available for comparison at the time of dictation. The skeletal structures are osteopenic. There is a mildly distracted intertrochanteric fracture of the left femur with overlying soft tissue edema. There are age indeterminant left pubic ring fractures. The right hip appears maintained. Mild to moderate degenerative joint space narrowing seen in the hips. Degenerative sclerosis is noted in the sacroiliac joints. There is lumbosacral spondylosis and scoliosis. No bowel obstruction is seen. Moderate colonic fecal retention is observed. Pelvic phleboliths are identified. IMPRESSION: 1. There is a mildly distracted intertrochanteric fracture of the left femur. 2. There are age indeterminant left pubic ring fractures. 3. Osteopenia and degenerative change as above. (1) Closed intertrochanteric fracture of left hip Encounter type: initial encounter Fracture alignment: nondisplaced Qualified Code(s): S72.145A - Nondisplaced intertrochanteric fracture of left femur, initial encounter for closed fracture
[2019-02-24] MEDS: predniSONE 2.5 MG TAB PO SCH (08:38)
[2019-02-24] MEDS: SERTRALINE HCL 100 MG TABLET PO SCH (08:38)
[2019-02-24] MEDS: METOPROLOL TARTRATE 50 MG TAB PO SCH ×2 (08:38→20:47)
[2019-02-24] MEDS: FENOFIBRATE NANOCRYSTALLIZED 48 MG TABLET PO SCH (08:38)
[2019-02-24] MEDS: ALLOPURINOL 100 MG TAB PO SCH (08:38)
[2019-02-24] MEDS: LISINOPRIL 20 MG TAB PO SCH (08:38)
[2019-02-24] MEDS: ROSUVASTATIN CALCIUM 10 MG TAB PO SCH (08:38)
[2019-02-24] MEDS: INSULIN GLARGINE SOLOSTAR 100 UNITS/ML 3 ML PEN SQ SCH ×3 (08:40→23:09)
[2019-02-24] MEDS: MoRPHine SULFATE 2 MG/ML CARP IV PRN (08:47)
--- NOTE | 2019-02-24 11:43 | History & Physical Bridge Note ---
Date of Service February 24, 2019 History & Physical Bridge Note I have examined the patient, reviewed the History & Physical and in the interval since the performance of the History & Physical I have noted the following changes of clinical significance: no changes noted
[2019-02-24] MEDS ORDERED: CEFAZOLIN 1,000 MG/7.5 ML IV PUSH IV ONE (11:45)
[2019-02-24] MEDS ORDERED: CEFAZOLIN 1000MG 1,000 MG/7.5 ML SYR IV ONE (12:17)
[2019-02-24] MEDS ORDERED: HYDROmorphone INJ 0.5 MG/0.5 ML SYR IV STA (13:24)
[2019-02-24] MEDS ORDERED: HYDROmorphone INJ 0.5 MG/0.5 ML SYR ONE (13:26)
--- NOTE | 2019-02-24 13:32 | Anesthesiology Consultation ---
Date of Service February 24, 2019 Assessment & Plan (1) Encounter for pre-operative examination: Chart Review Chart Review: Acceptable Risk for Surgery and Patient NOT seen in Pre Admission Testing Consults Requested none medicine is following History Surgery Operation Date: 02/24/19 12:40 Proposed Procedures p Left Trochanteric Nail - Ramiro Garcia MD Height/Weight Height: 5 ft 7 in Weight: 76.9 kg Allergies Allergy/AdvReac Type Severity Reaction Status Date / Time No Known Allergies Allergy Verified 02/24/19 10:36 Medications Home Medications Medication Instructions Recorded Confirmed Last Taken allopurinol 200 mg PO QAM 11/17/18 02/24/19 02/23/19 06:30 aspirin 81 mg PO QAM 11/17/18 02/24/19 02/23/19 06:30 cinnamon bark [Cinnamon] 500 mg PO QAM 11/17/18 02/24/19 02/23/19 06:30 fenofibrate nanocrystallized 48 mg PO QAM 11/17/18 02/24/19 02/23/19 06:30 insulin degludec-liraglutide 40 units SUBCUT HS 11/17/18 02/24/19 Unknown [Xultophy 100/3.6] metformin 1,000 mg PO BID 11/17/18 02/24/19 02/23/19 AM DOSE rosuvastatin 10 mg PO QAM 11/17/18 02/24/19 02/23/19 06:30 sertraline 100 mg PO QAM 11/17/18 02/24/19 02/23/19 06:30 lisinopril 20 mg PO QAM 02/23/19 02/24/19 02/23/19 06:30 metoprolol tartrate 50 mg PO QAM 02/23/19 02/24/19 02/23/19 06:30 prednisone See Rx Instructions .ROUTE .COMPLEX 02/23/19 02/24/19 02/23/19 06:30 10 MG Active Medications Generic Name Dose Route Start Last Admin Trade Name Freq PRN Reason Stop Dose Admin Acetaminophen 650 mg 02/23/19 22:17 02/23/19 23:45 Tylenol PO 03/25/19 22:16 650 mg Q4H PRN Administration pain/fever Allopurinol 200 mg 02/24/19 09:00 02/24/19 08:38 Zyloprim PO 03/26/19 08:59 200 mg QAM CARLA Administration Fenofibrate 48 mg 02/24/19 09:00 02/24/19 08:38 Fenofibrate PO 03/26/19 08:59 48 mg QAM CARLA Administration Sodium Chloride 1,000 mls @ 40 mls/hr 02/24/19 00:00 02/24/19 01:05 1/2 Nss IV 03/26/19 00:00 40 mls/hr .Q24H CARLA Administration Insulin Aspart 0 units 02/24/19 06:00 02/24/19 11:30 Novolog Flexpen SC 03/26/19 05:59 Not Given Q6 CARLA Insulin Glargine 10 units 02/23/19 22:17 02/24/19 08:40 Lantus Solostar Pen SQ 03/25/19 22:16 10 units BID CARLA Administration Lisinopril 20 mg 02/24/19 09:00 02/24/19 08:38 Zestril PO 03/26/19 08:59 20 mg QAM CARLA Administration Metoprolol Tartrate 50 mg 02/24/19 09:00 02/24/19 08:38 Lopressor PO 03/26/19 08:59 50 mg BID CARLA Administration Morphine Sulfate 2 mg 02/23/19 22:17 02/24/19 08:47 Morphine Sulfate IV 03/09/19 22:16 2 mg Q2H PRN Administration MODERATE Pain (Scale 4,5,6) Prednisone 10 mg 02/24/19 09:00 02/24/19 08:38 Prednisone PO 04/14/19 08:59 10 mg DAILY CARLA Administration Taper Rosuvastatin Calcium 10 mg 02/24/19 09:00 02/24/19 08:38 Crestor PO 03/26/19 08:59 10 mg QAM CARLA Administration Sertraline HCl 100 mg 02/24/19 09:00 02/24/19 08:38 Zoloft PO 03/26/19 08:59 100 mg QAM CARLA Administration Tramadol HCl 25 - 50 mg 02/23/19 22:17 02/24/19 07:01 Ultram PO 03/25/19 22:16 50 mg Q4H PRN Administration Pain NPO Date Last Intake of Fluids: 02/24/19 Time Last Intake of Fluids: 08:40 Last Intake of Fluids Comment: sips with meds Date Last Intake of Solids: 02/23/19 Time Last Intake of Solids: 21:00 Past Medical History Medical History Diabetes mellitus (Chronic) HTN (hypertension) (Chronic) HLD (hyperlipidemia) (Chronic) CKD (chronic kidney disease), stage III (Chronic) Depression (Chronic) Gout (Chronic) Past Family History Family History Other No pertinent family history Past Surgical History Surgical History S/P tubal ligation (Chronic) S/P tonsillectomy (Chronic) History of colonoscopy (Chronic) "fair prep diveticulosis, polyp path shows adenomatous tissue repeat in 5 years 2010" Social History Smoking Status: Never smoker Do You Dip or Chew Tobacco: No Hx Alcohol Use: Yes Alcohol type: wine alcohol intake frequency: holidays/special occasions only Hx Substance Use: No Physical Exam Vital Signs Last Vital Signs Temp 36.9 C 02/24/19 10:37 Pulse 101 H 02/24/19 10:37 Resp 20 02/24/19 10:37 BP 136/84 02/24/19 10:37 Pulse Ox 95 02/24/19 10:37 Testing Laboratory Results 02/24/19 07:46 02/23/19 19:15 PT 10.0 Seconds (9.0-12.0) 02/23/19 19:15 INR 1.0 (0.9-1.1) 02/23/19 19:15 APTT 22.2 Seconds (21.0-31.0) 02/23/19 19:15 Hemoglobin A1c 8.1 % (4.5-5.6) H 02/23/19 19:15 Urine Color Yellow 02/23/19 20:05 Urine Appearance Clear (Clear) 02/23/19 20:05 Urine pH 6.0 (4.5-7.5) 02/23/19 20:05 Ur Specific [place] 1.020 (1.000-1.030) 02/23/19 20:05 Urine Protein Negative (Negative) 02/23/19 20:05 Urine Glucose (UA) Negative (Negative) 02/23/19 20:05 Urine Ketones Negative (Negative) 02/23/19 20:05 Urine Nitrite Negative (Negative) 02/23/19 20:05 Ur Leukocyte Esterase 1+ (Negative) H 02/23/19 20:05 Urine WBC (Auto) 5-10 /hpf (0-5) H 02/23/19 20:05 Urine RBC (Auto) 0-4 /hpf (0-4) 02/23/19 20:05 U Hyaline Cast (Auto) 1-5 /lpf (0-5) 02/23/19 20:05 U Epithel Cells (Auto) >30 /lpf (0-5) H 02/23/19 20:05 Urine Bacteria (Auto) Negative (Negative) 02/23/19 20:05 Blood Type O Positive 02/23/19 19:15 Antibody Screen NEGATIVE 02/23/19 19:15 02/24/19 02/24/19 12:43 06:00 POC Glucose 147 H 177 H Electrocardiogram Date: 02/23/19 Findings: + NSR @ (97) Chest X-Ray Date: 02/23/19 SINGLE VIEW CHEST CLINICAL HISTORY: Fall. Left hip pain. FINDINGS: An AP, portable, upright chest radiograph is compared to study dated 08/17/2015. The examination is degraded by portable technique and patient rotation. The heart is top normal for projection and there is atherosclerotic calcification of the thoracic aorta. The lungs and pleural spaces are clear. No pneumothorax is seen. The skeletal structures are osteopenic. The bony thorax is grossly intact. IMPRESSION: No active disease in the chest. Electronically signed by: Crow Harris M.D. 02/23/2019 7:30 PM Dictated: 02/23/191928 Transcribed: 02/23/19[address] head/brain wo con CT DOSE: 614.27 mGy.cm HISTORY: Mental status change desai TECHNIQUE: Multiaxial CT images of the head were performed without the use of intravenous contrast. A dose lowering technique was utilized adhering to the principles of ALARA. Comparison: 10/15/2006 Findings: The paranasal sinuses and mastoid air cells are clear. The calvarium and skull base are intact. The ventricles and sulci are within normal limits. There is no mass, hematoma, midline shift, or acute infarct. Impression: No acute intracranial abnormality.
[2019-02-24] MEDS ORDERED: fentaNYL citrate 100 MCG/2 ML VIAL ONE (14:25)
[2019-02-24] MEDS ORDERED: KETAMINE HCL INJ 50 MG/ML 10 ML VIAL ONE (14:25)
[2019-02-24] MEDS ORDERED: MIDAZOLAM HCL 1 MG/ML 2ML VIAL ONE (14:25)
[2019-02-24] MEDS ORDERED: ONDANSETRON INJ 2 MG/ML 2 ML VIAL IV PRN (14:30)
[2019-02-24] MEDS ORDERED: LABETALOL HCL IV 5 MG/ML 20ML IV PRN (14:30)
[2019-02-24] MEDS ORDERED: ATROPINE SULFATE 0.1 MG/ML 10ML SYR IV PRN (14:30)
[2019-02-24] MEDS ORDERED: PHENYLEPHRINE 100MCG/ML 5ML SYR IV PRN (14:30)
[2019-02-24] MEDS ORDERED: fentaNYL citrate 100 MCG/2 ML VIAL IV PRN (14:30)
[2019-02-24] MEDS ORDERED: ePHEDrine sulfate 50 MG/ML AMP IV PRN (14:30)
[2019-02-24] MEDS ORDERED: HYDROmorphone INJ 1 MG/ML SYRINGE IV PRN (14:30)
[2019-02-24] MEDS ORDERED: DEXAMETHASONE SOD INJ 4 MG/ML VIAL ONE (15:45)
[2019-02-24] MEDS ORDERED: ONDANSETRON INJ 2 MG/ML 2 ML VIAL ONE (15:45)
[2019-02-24] MEDS ORDERED: GLYCOPYRROLATE 0.2 MG/ML VIAL ONE (15:45)
[2019-02-24] MEDS ORDERED: PROPOFOL IV EMULSION 10 MG/ML 20 ML VIAL IV ONE (15:45)
[2019-02-24] MEDS ORDERED: LIDOCAINE HCL 2% 2 ML VIAL/AMP(20MG/ML) INFIL ONE (15:45)
[2019-02-24] MEDS ORDERED: BUPIVACAINE/EPINEPHRINE 0.5% MPF 1:200,000 30 ML VIAL ONE (15:51)
--- NOTE | 2019-02-24 16:45 | Fluoroscopy Report ---
FL hip LT 2-3V CLINICAL HISTORY: With a femoral neck now and interlocking medullary quyen. Status post internal fixati on COMPARISON STUDY: 02/23/2019 FLUOROSCOPY TIME: 92 seconds. NUMBER OF FLUOROSCOPIC IMAGES: 4 FINDINGS: 4 intraoperative fluoroscopic spot images demonstrate internal fixation of an intratrochant thaddeus left hip fracture IMPRESSION: Internally fixated intertrochanteric left hip fracture. Electronically signed by: Mejia Glasgow M.D. 02/24/2019 4:44 PM
--- NOTE | 2019-02-24 16:59 | Operative Report ---
Post Operative Report Pre & Post Diagnosis Operation Date: 02/24/19 12:40 Pre-Op Diagnosis: Closed intertrochantric Left hip fracture Post-Op Diagnosis: Closed intertrochantric left hip fracture Procedure Operation Date: 02/24/19 12:40 Actual Procedures p Left Trochanteric Nail insertion (Left) - Ramiro Garcia MD Surgeon Ramiro Garcia MD Director Of Scientific Research None Estimated Blood Loss 25 Findings Consistent with Post-Op Diagnosis Specimens None Anesthesia Type Spinal MAC Disposition Accompanied Patient To Recovery: No Disposition: Recovery Room Indications The patient is a 69-year-old female sustained a fall onto left hip. Sustained a left intertrochanteric fracture. Given the nature of the injury I recommended open reduction internal fixation. She wishes to proceed. Description of Procedure Risks benefits and alternatives of surgery including but not limited to infection, DVT, PE, pain, stiffness, need for surgery, damage to blood vessels, damage to nerves or risks of anesthesia, were discussed with the patient and her family and they wished to proceed. Patient was identified in the laterality was confirmed and marked. They received a preoperative antibiotic. The patient was transferred to the fracture table. The operative limb was placed in traction and the well leg was placed in a well leg sandhu that was well-padded. The arms were well-padded and placed out of the way of the surgical field. I confirmed reduction of the fracture with fluoroscopy with the patient's fracture table and made adjustments to fracture table alignment is necessary to reduce the fracture appropriately. The hip was then prepped and draped in the usual standard manner with ChloraPrep. I made a longitudinal incision proximal to the greater trochanter. I sharply incised through the skin and then used Bovie electrocautery to achieve hemostasis. I incised through the fascia and then bluntly dissected down to the tip of the greater trochanter. Under fluoroscopic guidance I placed a guide pin into the greater trochanter and ensured proper placement on both AP and lateral fluoroscopy views. Once I was satisfied with the position of the guide. I advanced this distally. I then overreamed with the 17 mm proximal reamer. I then placed a Synthes trochanteric fixation nail into position. The size of the nail was a short nail. Then I placed the guide arm onto the nail insertion device made a stab incision more distally and then placed the drill guide for the helical blade. I adjusted the position of the nail as necessary to ensure that the guidepin was center center in the femoral head. Once I was satisfied with the position of the pin advanced it to the appropriate position of the femoral head. I then measured and then reamed the lateral cortex and then reamed down into the femoral head. I then inserted a size [address] I then locked the set screw proximally and then compressed the fracture. Then through a stab incision I placed a interlocking screw through the drill guide. I confirmed hardware placement and maintenance of reduction on AP and lateral fluoroscopy views. Wounds were then thoroughly irrigated. The fascia was closed with interrupted #1 Vicryl suture. Subcutaneous tissues closed with interrupted 2-0 Vicryl suture and the skin with ludmila. Sterile dressings applied. All needle and sponge counts were correct at the end of the procedure the patient was transferred to the PACU in stable condition without apparent complication. I attest to the content of the Intraoperative Record and any orders documented therein. Any exceptions are noted below.
[2019-02-24] MEDS ORDERED: NALOXONE HCL 0.4 MG/1 ML VIAL/CARP IV PRN (17:48)
--- NOTE | 2019-02-24 17:50 | Anesthesiology Progress Note ---
Date of Service February 24, 2019 Anesthesia Post Procedure Vital Signs Vital Signs: Temp Pulse Pulse Pulse Resp BP BP 02/24/19 17:30 98.8 F 72 16 128/63 02/24/19 17:20 98.8 F 74 14 117/69 02/24/19 17:10 73 14 111/75 02/24/19 17:00 75 14 130/61 02/24/19 16:52 98.6 F 83 16 115/55 L 02/24/19 10:37 98.4 F 101 H 20 136/84 02/24/19 07:28 98.1 F 98 H 18 153/79 H 02/23/19 23:15 98.4 F 90 16 155/69 H 02/23/19 22:22 98.1 F 88 18 157/78 H 02/23/19 21:53 85 16 119/74 02/23/19 20:26 89 16 156/99 H 02/23/19 18:25 98.2 F 86 17 117/96 Pulse Ox 02/24/19 17:30 100 02/24/19 17:20 100 02/24/19 17:10 99 02/24/19 17:00 100 02/24/19 16:52 98 02/24/19 10:37 95 02/24/19 07:28 97 02/23/19 23:15 99 02/23/19 22:22 96 02/23/19 21:53 96 02/23/19 20:26 96 02/23/19 18:25 95 Pain Intensity Left Hip: Pain Intensity: 0 Transfer of Care Handoff Completed per policy Notes Mental Status: alert / awake / arousable and participated in evaluation Patient Amnestic to Procedure: Yes Nausea / Vomiting: adequately controlled Pain: adequately controlled Airway Patency, RR, SpO2: stable & adequate BP & HR: stable & adequate Hydration State: stable & adequate Neuraxial Anesthesia: was administered and sensory block is resolving Anesthetic Complications: no major complications apparent and Pt Satisfied with anesthetic care
[2019-02-24] MEDS ORDERED: SODIUM CHLORIDE 0.9% 1000ML 1,000 ML IV SCH (18:15)
--- NOTE | 2019-02-24 18:15 | Hospitalist Progress Note ---
Date of Service February 24, 2019 Assessment & Plan (1) Closed intertrochanteric fracture of left hip: -Secondary to mechanical fall - 02/24/19 s/p Left Trochanteric Nail insertion (Left) - Ramiro Garcia MD -post-operative state: patient returns to medical slade. she is not able to feel her lower extremities bilaterally at this time. she is awake and in good spirits and alert and responding to questions appropriately. 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 Maria Antonia Romero [phone]. Subjective patient returns to medical slade s/p Left Trochanteric Nail insertion . she is not able to feel her lower extremities bilaterally at this time. she is awake and in good spirits and alert and responding to questions appropriately. expect that the numbness will go away as she is further removed from effects of anesthesia. has lafleur. on nasal cannula. no chest pain. no abdomen pain. she is eager to eat. no headache. no dizziness Physical Exam Constitutional: comfortable Eyes: PERRL, conjunctivae normal, anicteric sclerae EOM intact bilaterally ENMT: external ear and nose normal, oropharynx normal Neck: trachea midline, no thyromegaly normal visual inspection Respiratory: normal respiratory effort, lungs clear to auscultation Cardiovascular: RRR, no murmur, no edema Gastrointestinal (Abdomen): normal bowel sounds, soft, nontender, no hepatosplenomegaly Neurologic: PERRL, EOMI, accommodation nl, no face palsy, no dysarthria numbness of bilateral lower extremities, ice over left thigh, dressing over left thigh Psychiatric: A+Ox3, euthymic affect Genitourinary: lafleur Results & Data Vital Signs (Past 12 Hours) Vital Signs Temp Pulse Pulse Resp BP Pulse Ox 02/24/19 17:48 37.0 C 73 118/72 100 02/24/19 17:30 37.1 C 72 16 128/63 100 02/24/19 17:20 37.1 C 74 14 117/69 100 02/24/19 17:10 73 14 111/75 99 02/24/19 17:00 75 14 130/61 100 02/24/19 16:52 37.0 C 83 16 115/55 L 98 02/24/19 10:37 36.9 C 101 H 20 136/84 95 02/24/19 07:28 36.7 C 98 H 18 153/79 H 97 (1) Closed intertrochanteric fracture of left hip Encounter type: initial encounter Fracture alignment: nondisplaced Qualified Code(s): S72.145A - Nondisplaced intertrochanteric fracture of left femur, initial encounter for closed fracture
[2019-02-24] MEDS ORDERED: Nursing to Pharmacy Communication ONE (18:56)
[2019-02-24] MEDS: SENNA 8.6 MG TAB PO SCH (20:49)
[2019-02-24] MEDS: ASPIRIN 81 MG ECTAB PO SCH (20:49)
[2019-02-24] MEDS: CEFAZOLIN 1000MG 1,000 MG/7.5 ML SYR IV SCH (22:28)
[2019-02-25] MEDS: MoRPHine SULFATE 2 MG/ML CARP IV PRN (01:23)
[2019-02-25 05:57] LABS: Basophils # (auto) 0.02 K/uL (0-0.2); Basophils % (auto) 0.1 %; Eosinophils # (auto) 0.16 K/uL (0-0.5); Eosinophils % (auto) 1.1 %; Hematocrit (blood only) 28.2 % (37-47); Hemoglobin 9.3 g/dL (12.0-16.0); Immature Granulocytes # (auto) 0.04 K/uL (0.00-0.02); Immature Granulocytes % (auto) 0.3 %; Lymphocytes # (auto) 1.63 K/uL (1.2-3.4); Lymphocytes % (auto) 11.5 %; Mean Platelet Volume 9.6 fL (7.4-10.4); Monocytes # (auto) 0.86 K/uL (0.11-0.59); Monocytes % (auto) 6.1 %; Neutrophils # (auto) 11.42 K/uL (1.4-6.5); Neutrophils % (auto) 80.9 %; Platelet Count 191 K/uL (130-400); RDW Coefficient of Variation 16.1 % (11.5-14.5); RDW Standard Deviation 48.1 fL (36.4-46.3); Red Blood Count 3.44 M/uL (4.2-5.4); White Blood Count 14.13 K/uL (4.8-10.8)
[2019-02-25] MEDS: CEFAZOLIN 1000MG 1,000 MG/7.5 ML SYR IV SCH (06:26)
[2019-02-25 06:27] LABS: BUN Creatinine Ratio 17.5 (10-20); Calcium 8.5 mg/dl (8.5-10.1); Creatinine Clr Calc Pharmacy 42.4 ml/min; Est GFR (African American) 47.8; Est GFR (Non-African American) 41.2; Potassium 3.5 mmol/L (3.5-5.1)
[2019-02-25] MEDS ORDERED: POTASSIUM CHLORIDE 20 MEQ TABCR PO STA (06:55)
[2019-02-25] MEDS ORDERED: SODIUM CHLORIDE 0.9% 1000ML 1,000 ML IV SCH (07:00)
[2019-02-25] MEDS: TRAMADOL HCL 50 MG TABLET PO PRN (07:48)
[2019-02-25] MEDS: ASPIRIN 81 MG ECTAB PO SCH ×2 (08:52→20:18)
[2019-02-25] MEDS: SERTRALINE HCL 100 MG TABLET PO SCH (08:52)
[2019-02-25] MEDS: METOPROLOL TARTRATE 50 MG TAB PO SCH ×2 (08:52→20:18)
[2019-02-25] MEDS: ROSUVASTATIN CALCIUM 10 MG TAB PO SCH (08:52)
[2019-02-25] MEDS: ALLOPURINOL 100 MG TAB PO SCH (08:52)
[2019-02-25] MEDS: predniSONE 2.5 MG TAB PO SCH (08:53)
[2019-02-25] MEDS: FENOFIBRATE NANOCRYSTALLIZED 48 MG TABLET PO SCH (08:53)
[2019-02-25] MEDS: LISINOPRIL 20 MG TAB PO SCH (08:53)
[2019-02-25] MEDS: INSULIN GLARGINE SOLOSTAR 100 UNITS/ML 3 ML PEN SQ SCH ×2 (08:54→21:13)
[2019-02-25] MEDS: INSULIN ASPART 100 UNITS/ML 3 ML PEN SC SCH ×4 (08:57→21:13)
--- NOTE | 2019-02-25 10:05 | Orthopedic Progress Note ---
Date of Service February 25, 2019 Assessment & Plan (1) Closed intertrochanteric fracture of left hip: Postop day 1 status post left TFN PT/OT protocol. Weightbearing as tolerated. DVT prophylaxis with aspirin twice daily, ARMAAN Grady Pain management-patient complaining of increased pain today post surgery. We will add oxycodone 1 tablet every 6 hours as needed. Patient also has IV morphine ordered. Tramadol does not appear to be covering her pain. Swelling of the left lower extremity likely due to fracture and surgical intervention. Watch for now. Subjective Postop day 1 status post left TFN Patient is sitting up in bed. She is awake and alert. She states she is having mild to moderate pain in the left lower extremity. She is also having some low back pain. She is concerned about swelling in her lower extremity. She denies any shortness of breath, chest pain, lightheadedness. Physical Exam Physical Exam: Dressings are clean, dry, and intact. Calves are soft nontender. She has some tenderness of the left ankle and has some slightly decreased range of motion due to discomfort. She has some noted edema of the left lower extremity compared to the right. Overall, soft tissues are soft and nontender on palpation. Results & Data Vital Signs (Past 12 Hours) Vital Signs Temp Pulse Resp BP Pulse Ox 02/25/19 08:15 36.6 C 78 16 128/65 98 02/25/19 03:50 37.3 C 98 H 16 135/71 97 02/24/19 22:26 36.9 C 96 H 16 111/67 93 (1) Closed intertrochanteric fracture of left hip Encounter type: initial encounter Fracture alignment: nondisplaced Qualified Code(s): S72.145A - Nondisplaced intertrochanteric fracture of left femur, in itial encounter for closed fracture
[2019-02-25] MEDS: OXYCODONE HCL IR 5 MG TAB (IMMEDIATE RELEASE) PO PRN ×2 (10:16→17:04)
--- NOTE | 2019-02-25 10:54 | Anesthesiology Progress Note ---
Date of Service February 25, 2019 Anesthesia Post Procedure Vital Signs Vital Signs: Temp Pulse Pulse Resp BP Pulse Ox 02/25/19 08:15 36.6 C 78 16 128/65 98 02/25/19 03:50 37.3 C 98 H 16 135/71 97 02/24/19 22:26 36.9 C 96 H 16 111/67 93 02/24/19 20:45 36.6 C 83 18 123/69 97 02/24/19 19:43 36.4 C L 84 18 102/64 95 02/24/19 18:55 36.7 C 86 18 133/73 100 02/24/19 18:15 36.3 C L 75 16 124/74 94 02/24/19 17:48 37.0 C 73 118/72 100 02/24/19 17:30 37.1 C 72 16 128/63 100 02/24/19 17:20 37.1 C 74 14 117/69 100 02/24/19 17:10 73 14 111/75 99 02/24/19 17:00 75 14 130/61 100 02/24/19 16:52 37.0 C 83 16 115/55 L 98 Pain Intensity Left Hip: Pain Intensity: 8 Notes Mental Status: alert / awake / arousable and participated in evaluation Patient Amnestic to Procedure: Yes Nausea / Vomiting: adequately controlled Pain: adequately controlled Airway Patency, RR, SpO2: stable & adequate BP & HR: stable & adequate Neuraxial Anesthesia: was administered and sensory block resolved Anesthetic Complications: no major complications apparent
--- NOTE | 2019-02-25 12:19 | Anesthesiology Progress Note ---
Date of Service February 25, 2019 Anesthesia Post Procedure Vital Signs Vital Signs: Temp Pulse Pulse Resp BP Pulse Ox 02/25/19 11:26 36.8 C 80 16 109/63 02/25/19 08:15 36.6 C 78 16 128/65 98 02/25/19 03:50 37.3 C 98 H 16 135/71 97 02/24/19 22:26 36.9 C 96 H 16 111/67 93 02/24/19 20:45 36.6 C 83 18 123/69 97 02/24/19 19:43 36.4 C L 84 18 102/64 95 02/24/19 18:55 36.7 C 86 18 133/73 100 02/24/19 18:15 36.3 C L 75 16 124/74 94 02/24/19 17:48 37.0 C 73 118/72 100 02/24/19 17:30 37.1 C 72 16 128/63 100 02/24/19 17:20 37.1 C 74 14 117/69 100 02/24/19 17:10 73 14 111/75 99 02/24/19 17:00 75 14 130/61 100 02/24/19 16:52 37.0 C 83 16 115/55 L 98 Pain Intensity Left Hip: Pain Intensity: 8 Notes Mental Status: alert / awake / arousable Patient Amnestic to Procedure: Yes Nausea / Vomiting: adequately controlled Pain: adequately controlled Airway Patency, RR, SpO2: stable & adequate Hydration State: stable & adequate Neuraxial Anesthesia: was administered and sensory block resolved Anesthetic Complications: no major complications apparent and Pt Satisfied with anesthetic care
--- NOTE | 2019-02-25 15:57 | Hospitalist Progress Note ---
Date of Service February 25, 2019 Assessment & Plan (1) Closed intertrochanteric fracture of left hip: -Secondary to mechanical fall - 02/24/19 s/p Left Trochanteric Nail insertion (Left) - Ramiro Garcia MD -post-operative state on 02/24/19: patient returns to medical slade. she is not able to feel her lower extremities bilaterally at this time. she is awake and in good spirits and alert and responding to questions appropriately. 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 Maria Antonia Romero [phone]. Subjective Patient having difficulties with physical therapy today as per nurse. The numbness of the legs from yesterday is gone as per patient. She is able to wiggle her toes when laying flat comfortably. Patient has lafleur. denies acute pain of the legs. denies abdomen pain. no chest pain. breathing on room air. no shortness of breath . no bowel movement today Physical Exam Constitutional: comfortable Eyes: PERRL, conjunctivae normal, anicteric sclerae EOM intact bilaterally ENMT: external ear and nose normal, oropharynx normal Neck: trachea midline, no thyromegaly normal visual inspection Respiratory: normal respiratory effort, lungs clear to auscultation Cardiovascular: RRR, no murmur, no edema Gastrointestinal (Abdomen): normal bowel sounds, soft, nontender, no hepatosplenomegaly Neurologic: PERRL, EOMI, accommodation nl, no face palsy, no dysarthria Psychiatric: A+Ox3, euthymic affect Results & Data Vital Signs (Past 12 Hours) Vital Signs Temp Pulse Pulse Resp BP Pulse Ox 02/25/19 15:49 36.9 C 92 H 16 109/65 96 02/25/19 11:26 36.8 C 80 16 109/63 02/25/19 08:15 36.6 C 78 16 128/65 98 (1) Closed intertrochanteric fracture of left hip Encounter type: initial encounter Fracture alignment: nondisplaced Qualified Code(s): S72.145A - Nondisplaced intertrochanteric fracture of left femur, initial encounter for closed fracture
[2019-02-25] MEDS: POLYETHYLENE (MIRALAX) 17 GM PACK PO SCH (17:31)
[2019-02-25] MEDS: SENNA 8.6 MG TAB PO SCH (20:18)
[2019-02-25] MEDS ORDERED: INSULIN GLARGINE SOLOSTAR 100 UNITS/ML 3 ML PEN SQ STA (22:22)
[2019-02-26] MEDS: OXYCODONE HCL IR 5 MG TAB (IMMEDIATE RELEASE) PO PRN ×3 (00:46→18:56)
[2019-02-26 06:24] LABS: Basophils # (auto) 0.02 K/uL (0-0.2); Basophils % (auto) 0.2 %; Eosinophils # (auto) 0.07 K/uL (0-0.5); Eosinophils % (auto) 0.6 %; Hematocrit (blood only) 24.7 % (37-47); Hemoglobin 8.2 g/dL (12.0-16.0); Immature Granulocytes # (auto) 0.02 K/uL (0.00-0.02); Immature Granulocytes % (auto) 0.2 %; Lymphocytes # (auto) 1.14 K/uL (1.2-3.4); Lymphocytes % (auto) 10.6 %; Mean Corpuscular Hgb Conc 33.2 g/dL (32-36); Mean Corpuscular Volume 81.3 fL (80-100); Mean Platelet Volume 9.9 fL (7.4-10.4); Monocytes # (auto) 0.61 K/uL (0.11-0.59); Monocytes % (auto) 5.6 %; Neutrophils # (auto) 8.94 K/uL (1.4-6.5); Neutrophils % (auto) 82.8 %; Platelet Count 175 K/uL (130-400); RDW Coefficient of Variation 16.2 % (11.5-14.5); RDW Standard Deviation 48.5 fL (36.4-46.3); Red Blood Count 3.04 M/uL (4.2-5.4)
[2019-02-26 07:02] LABS: Albumin Level 2.8 gm/dl (3.4-5.0); BUN Creatinine Ratio 21.3 (10-20); Calcium 8.4 mg/dl (8.5-10.1); Est GFR (African American) 61.2; Est GFR (Non-African American) 52.8
[2019-02-26 07:05] LABS: Albumin Globulin Ratio 0.8 (0.9-2); Bilirubin,Total 0.7 mg/dl (0.2-1); Globulin 3.4 gm/dl (2.5-4.0); Total Protein 6.2 gm/dl (6.4-8.2)
[2019-02-26] MEDS: LISINOPRIL 20 MG TAB PO SCH (09:01)
[2019-02-26] MEDS: POLYETHYLENE (MIRALAX) 17 GM PACK PO SCH (09:01)
[2019-02-26] MEDS: METOPROLOL TARTRATE 50 MG TAB PO SCH ×2 (09:01→21:07)
[2019-02-26] MEDS: ALLOPURINOL 100 MG TAB PO SCH (09:01)
[2019-02-26] MEDS: FENOFIBRATE NANOCRYSTALLIZED 48 MG TABLET PO SCH (09:01)
[2019-02-26] MEDS: SERTRALINE HCL 100 MG TABLET PO SCH (09:01)
[2019-02-26] MEDS: ROSUVASTATIN CALCIUM 10 MG TAB PO SCH (09:02)
[2019-02-26] MEDS: ASPIRIN 81 MG ECTAB PO SCH ×2 (09:02→21:06)
[2019-02-26] MEDS: predniSONE 2.5 MG TAB PO SCH (09:02)
[2019-02-26] MEDS: INSULIN ASPART 100 UNITS/ML 3 ML PEN SC SCH ×4 (09:03→21:09)
[2019-02-26] MEDS: INSULIN GLARGINE SOLOSTAR 100 UNITS/ML 3 ML PEN SQ SCH ×2 (09:03→21:08)
--- NOTE | 2019-02-26 09:38 | Hospitalist Progress Note ---
Date of Service February 26, 2019 Assessment & Plan (1) Closed intertrochanteric fracture of left hip: -Secondary to mechanical fall - 02/24/19 s/p Left Trochanteric Nail insertion (Left) - Ramiro Garcia MD -post-operative state on 02/24/19: patient returns to medical [facility]ade. she is not able to feel her lower extremities bilaterally at this time. she is awake and in good spirits and alert and responding to questions appropriately. expect that the numbness will go away as she is further removed from effects of anesthesia -02/25/19 assessment: numbness of legs are gone, trial of void by having lafleur to be removed -continue pain medication and bowel regimen -continue PT/OT evaluations chronic Anemia with acute blood loss anemia -baseline has chronic anemia -Hgb preop 10.8, however since the surgery the Hgb has been generally downtrending Hgb 9.5 to 9.3 to 8.2 -left thigh with swelling but does not have acute ecchymosis that is visually apparent, so blood loss may be from underlying bruising -maintain active type and screen -will send FOBT with next bowel movement but unlikely to be GI blood loss Hypertension -lisinopril 20 mg daily Type 2 diabetes mellitus with care home current use of insulin with hyperglycemia -admission glucose 319 -hold home dose metformin for now -sliding scale insulin, continue -on increased long acting insulin as 25 units BID for now Polymyalgia rheumatica -continue prednisone as per recent home dosing mood disorder -Mood stable -continue home dose sertraline DNR/DNI as per patient and Living WILL Daughter Ms. Maria Antonia Romero [phone]. Subjective patient needed use of bedpan since last seen by physician on 02/25/19. The lafleur has been removed yesterday. patient's blood counts are trending down. no dizziness. no lightheadedness. no chest pain. no abdominal pain. no palpitations. left thigh does not have acute Ecchymosis but have left thigh swelling Physical Exam Constitutional: comfortable Eyes: PERRL, conjunctivae normal, anicteric sclerae EOM intact bilaterally ENMT: external ear and nose normal, oropharynx normal Neck: trachea midline, no thyromegaly normal visual inspection Respiratory: normal respiratory effort, lungs clear to auscultation Cardiovascular: RRR, no murmur, no edema Gastrointestinal (Abdomen): normal bowel sounds, soft, nontender, no hepatosplenomegaly Musculoskeletal: left thigh does not have acute Ecchymosis but have left thigh swelling Neurologic: PERRL, EOMI, accommodation nl, no face palsy, no dysarthria Psychiatric: A+Ox3, euthymic affect Results & Data Vital Signs (Past 12 Hours) Vital Signs Temp Pulse Resp BP Pulse Ox Pulse Ox 02/26/19 08:13 98 02/26/19 08:03 36.8 C 96 H 98 H 123/71 98 02/25/19 23:51 37.1 C 95 H 14 126/73 98 (1) Closed intertrochanteric fracture of left hip Encounter type: initial encounter Fracture alignment: nondisplaced Qualified Code(s): S72.145A - Nondisplaced intertrochanteric fracture of left femur, initial encounter for closed fracture
[2019-02-26] MEDS: TRAMADOL HCL 50 MG TABLET PO PRN ×2 (10:30→19:55)
--- NOTE | 2019-02-26 11:53 | Orthopedic Progress Note ---
Date of Service February 26, 2019 Assessment & Plan (1) Closed intertrochanteric fracture of left hip: Postop day 2 status post left TFN PT/OT protocol. Weightbearing as tolerated. DVT prophylaxis with aspirin twice daily, SCDs, ARMAAN carter Recheck Hgb in am, with slight dizziness. May need to consider transfusion Subjective Postop day 2 status post left TFN Patient is sitting in chair She is awake and alert. She states she is having m ild pain in the left lower extremity. She denies any shortness of breath, chest pain. She notes some very mild dizziness with activities. Physical Exam Physical Exam: Toes mobile, NVI. Calves soft, non tender. Dressing in place. Results & Data Vital Signs (Past 12 Hours) Vital Signs Temp Pulse Resp BP Pulse Ox Pulse Ox 02/26/19 08:13 98 02/26/19 08:03 36.8 C 96 H 98 H 123/71 98 (1) Closed intertrochanteric fracture of left hip Encounter type: initial encounter Fracture alignment: nondisplaced Qualified Code(s): S72.145A - Nondisplaced intertrochanteric fracture of left femur, initial encounter for closed fracture
[2019-02-26] MEDS: SENNA 8.6 MG TAB PO SCH (21:07)
[2019-02-27] MEDS: ACETAMINOPHEN 325 MG TAB PO PRN (06:11)
[2019-02-27 07:02] LABS: Basophils # (auto) 0.03 K/uL (0-0.2); Basophils % (auto) 0.3 %; Eosinophils # (auto) 0.18 K/uL (0-0.5); Eosinophils % (auto) 1.5 %; Hematocrit (blood only) 26.1 % (37-47); Hemoglobin 8.8 g/dL (12.0-16.0); Immature Granulocytes % (auto) 0.9 %; Lymphocytes # (auto) 1.61 K/uL (1.2-3.4); Lymphocytes % (auto) 13.8 %; Mean Corpuscular Hgb Conc 33.7 g/dL (32-36); Mean Corpuscular Volume 82.1 fL (80-100); Mean Platelet Volume 11.5 fL (7.4-10.4); Monocytes # (auto) 0.66 K/uL (0.11-0.59); Monocytes % (auto) 5.7 %; Neutrophils # (auto) 9.06 K/uL (1.4-6.5); Neutrophils % (auto) 77.8 %; Platelet Count 246 K/uL (130-400); Platelet Estimate Normal (Normal); RDW Coefficient of Variation 16.5 % (11.5-14.5); RDW Standard Deviation 49.6 fL (36.4-46.3); Red Blood Count 3.18 M/uL (4.2-5.4); White Blood Count 11.64 K/uL (4.8-10.8)
[2019-02-27] MEDS: OXYCODONE HCL IR 5 MG TAB (IMMEDIATE RELEASE) PO PRN ×2 (07:43→13:56)
[2019-02-27] MEDS: ALLOPURINOL 100 MG TAB PO SCH (07:44)
[2019-02-27] MEDS: ROSUVASTATIN CALCIUM 10 MG TAB PO SCH (07:44)
[2019-02-27] MEDS: LISINOPRIL 20 MG TAB PO SCH (07:44)
[2019-02-27] MEDS: METOPROLOL TARTRATE 50 MG TAB PO SCH ×2 (07:44→20:44)
[2019-02-27] MEDS: FENOFIBRATE NANOCRYSTALLIZED 48 MG TABLET PO SCH (07:44)
[2019-02-27] MEDS: predniSONE 2.5 MG TAB PO SCH (07:44)
[2019-02-27] MEDS: SERTRALINE HCL 100 MG TABLET PO SCH (07:44)
[2019-02-27] MEDS: ASPIRIN 81 MG ECTAB PO SCH ×2 (07:44→21:06)
[2019-02-27] MEDS: INSULIN GLARGINE SOLOSTAR 100 UNITS/ML 3 ML PEN SQ SCH ×2 (08:40→21:08)
[2019-02-27] MEDS: INSULIN ASPART 100 UNITS/ML 3 ML PEN SC SCH ×4 (08:40→21:08)
[2019-02-27] MEDS: POLYETHYLENE (MIRALAX) 17 GM PACK PO SCH (08:40)
--- NOTE | 2019-02-27 08:55 | Orthopedic Progress Note ---
Date of Service February 27, 2019 Assessment & Plan (1) Closed intertrochanteric fracture of left hip: Postop day 3 status post left TFN PT/OT protocol. Weightbearing as tolerated. DVT prophylaxis with aspirin twice daily, SCDs, ARMAAN catrer Recheck Hgb in am, with slight dizziness. : has improved Ortho will sign off. Please consult if needed. Subjective Postop day 3 status post left TFN Patient resting in bed, dizziness has improved. She denies any shortness of breath, chest pain. Physical Exam Physical Exam: Toes mobile, NVI. Calves soft, non tender. Dressing in place to left hip Results & Data Vital Signs (Past 12 Hours) Vital Signs Temp Pulse Pulse Resp BP Pulse Ox 02/27/19 07:15 36.6 C 76 16 101/63 95 02/26/19 23:46 37.0 C 77 16 109/66 93 02/26/19 21:04 83 111/68 (1) Closed intertrochanteric fracture of left hip Encounter type: initial encounter Fracture alignment: nondisplaced Qualified Code(s): S72.145A - Nondisplaced intertrochanteric fracture of left femur, initial encounter for closed fracture
[2019-02-27] MEDS ORDERED: MAGNESIUM HYDROXIDE SUSP 30 ML UDC PO ONE (09:23)
--- NOTE | 2019-02-27 09:23 | Hospitalist Progress Note ---
Date of Service February 27, 2019 Assessment & Plan (1) Closed intertrochanteric fracture of left hip: Closed intertrochanteric fracture of left hip; s/p Left Trochanteric Nail insertion -Secondary to mechanical fall - 02/24/19 s/p Left Trochanteric Nail insertion (Left) - Ramiro Garcia MD -post-operative state on 02/24/19: patient returns to medical slade. she is not able to feel her lower extremities bilaterally at this time. she is awake and in good spirits and alert and responding to questions appropriately. expect that the numbness will go away as she is further removed from effects of anesthesia -02/25/19 assessment: numbness of legs are gone, trial of void by having lafleur to be removed -continue pain medication, and increase bowel regimen -continue PT/OT evaluations - patient likely will need inpatient physical therapy placement chronic Anemia with acute blood loss anemia -baseline has chronic anemia -Hgb preop 10.8, however since the surgery the Hgb has been generally downtrending Hgb 9.5 to 9.3 to 8.2 to 8.8 -left thigh with swelling but does not have acute ecchymosis that is visually apparent, so blood loss may be from underlying bruising -maintain active type and screen -FOBT ordered but unlikely to be GI blood loss, patient has been constipated Hypertension -lisinopril 20 mg daily 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 2 diabetes mellitus with 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 Maria Antonia Romero [phone]. Subjective Patient comfortable. breathing on room air. on my exam, no complaints of dizziness. nursing and physical therapy staff about to help patient go from bed to chair. patient reports she was able to get from bed to chair yesterday. she feels gassy. she is not certain about bowel movements. no chest pain , no palpitations. no abdomen pain. no vomiting Physical Exam Constitutional: comfortable Eyes: PERRL, conjunctivae normal, anicteric sclerae EOM intact bilaterally ENMT: external ear and nose normal, oropharynx normal Neck: trachea midline, no thyromegaly normal visual inspection Respiratory: normal respiratory effort, lungs clear to auscultation Cardiovascular: RRR, no murmur, no edema Gastrointestinal (Abdomen): normal bowel sounds, soft, nontender, no hepatosplenomegaly Musculoskeletal: left thigh with some swelling compared to right thigh but the swelling has not increased susbtantially on exam Neurologic: PERRL, EOMI, accommodation nl, no face palsy, no dysarthria Psychiatric: A+Ox3, euthymic affect Results & Data Vital Signs (Past 12 Hours) Vital Signs Temp Pulse Pulse Resp BP Pulse Ox 02/27/19 07:15 36.6 C 76 16 101/63 95 02/26/19 23:46 37.0 C 77 16 109/66 93 (1) Closed intertrochanteric fracture of left hip Encounter type: initial encounter Fracture alignment: nondisplaced Qualified Code(s): S72.145A - Nondisplaced intertrochanteric fracture of left femur, initial encounter for closed fracture
[2019-02-27] MEDS: TRAMADOL HCL 50 MG TABLET PO PRN ×3 (10:51→23:33)
[2019-02-27] MEDS: DOCUSATE SODIUM 100 MG CAP PO SCH ×2 (10:51→21:06)
[2019-02-27] MEDS: SENNA 8.6 MG TAB PO SCH (21:06)
[2019-02-28] MEDS: ACETAMINOPHEN 325 MG TAB PO PRN (00:07)
[2019-02-28 05:38] LABS: Basophils # (auto) 0.02 K/uL (0-0.2); Basophils % (auto) 0.2 %; Eosinophils # (auto) 0.25 K/uL (0-0.5); Eosinophils % (auto) 2.5 %; Hematocrit (blood only) 25.6 % (37-47); Hemoglobin 8.2 g/dL (12.0-16.0); Immature Granulocytes # (auto) 0.06 K/uL (0.00-0.02); Immature Granulocytes % (auto) 0.6 %; Lymphocytes # (auto) 1.99 K/uL (1.2-3.4); Lymphocytes % (auto) 19.7 %; Mean Corpuscular Volume 83.7 fL (80-100); Mean Platelet Volume 10.7 fL (7.4-10.4); Monocytes # (auto) 0.53 K/uL (0.11-0.59); Monocytes % (auto) 5.2 %; Neutrophils # (auto) 7.25 K/uL (1.4-6.5); Neutrophils % (auto) 71.8 %; Platelet Count 246 K/uL (130-400); RDW Coefficient of Variation 16.7 % (11.5-14.5); RDW Standard Deviation 50.6 fL (36.4-46.3); Red Blood Count 3.06 M/uL (4.2-5.4)
[2019-02-28] MEDS: predniSONE 2.5 MG TAB PO SCH (07:36)
[2019-02-28] MEDS: SERTRALINE HCL 100 MG TABLET PO SCH (07:36)
[2019-02-28] MEDS: LISINOPRIL 20 MG TAB PO SCH (07:36)
[2019-02-28] MEDS: ALLOPURINOL 100 MG TAB PO SCH (07:36)
[2019-02-28] MEDS: ROSUVASTATIN CALCIUM 10 MG TAB PO SCH (07:37)
[2019-02-28] MEDS: ASPIRIN 81 MG ECTAB PO SCH (07:37)
[2019-02-28] MEDS: OXYCODONE HCL IR 5 MG TAB (IMMEDIATE RELEASE) PO PRN ×2 (07:37→12:51)
[2019-02-28] MEDS: DOCUSATE SODIUM 100 MG CAP PO SCH (07:37)
[2019-02-28] MEDS: FENOFIBRATE NANOCRYSTALLIZED 48 MG TABLET PO SCH (07:38)
[2019-02-28] MEDS: POLYETHYLENE (MIRALAX) 17 GM PACK PO SCH (07:38)
[2019-02-28] MEDS: METOPROLOL TARTRATE 50 MG TAB PO SCH (07:38)
[2019-02-28] MEDS: INSULIN GLARGINE SOLOSTAR 100 UNITS/ML 3 ML PEN SQ SCH (07:39)
[2019-02-28] MEDS: INSULIN ASPART 100 UNITS/ML 3 ML PEN SC SCH ×2 (07:40→12:23)
--- NOTE | 2019-02-28 10:26 | Hospitalist Progress Note ---
Date of Service February 28, 2019 Assessment & Plan (1) Closed intertrochanteric fracture of left hip: Closed intertrochanteric fracture of left hip; s/p Left Trochanteric Nail insertion -Secondary to mechanical fall - 02/24/19 s/p Left Trochanteric Nail insertion (Left) - Ramiro Garcia MD -post-operative state on 02/24/19: patient returns to medical slade. she is not able to feel her lower extremities bilaterally at this time. she is awake and in good spirits and alert and responding to questions appropriately. expect that the numbness will go away as she is further removed from effects of anesthesia -02/25/19 assessment: numbness of legs are gone, trial of void completed -02/28/19 Discharge to [facility] for physical rehabilitation ([facility] DISCHARGE INSTRUCTIONS: HIP FRACTURE (SELF CARE INSTRUCTIONS: A. You are to ambulate with a walker or crutches for approximately 6 weeks. B. You are WEIGHT BEARING TOLERATED on your operative lower extremity for at least 6 weeks. C. Wear low heeled shoes with non-slip soles D. Be sure that your floors are free of things that could trip you throw rugs, electrical cords, and small objects. Avoid wet and waxed floors, especially with crutches/walker/cane. E. Try to walk several times a day with rest periods between. F. You may shower 48 hours after surgery and get the incision area wet, but DO NOT soak or submerge incision area in water. (No baths, swimming pools, hot tubs) G. You may have a large, band-aid like dressing over your incision (Aquacel). This will remain on your incision for 7 days, and then can be removed. You CAN shower with this on. If incision is leaking through the dressing, please call the office . H. Do NOT apply soap or any ointment/lotions directly over incision. I. You may use ice as needed to operative site. SPECIAL CARE INSTRUCTIONS: VERY IMPORTANT TO READ AND REVIEW A. You may be at risk for phlebitis or blood clots. a. Wear surgical stockings (ARMAAN hose) for 2 weeks after surgery to improve circulation and reduce swelling. b. Take ASPIRIN 81 mg twice daily for 4 weeks or as directed. This is your blood thinner. c. If you are on Coumadin- you will have daily/weekly blood work to monitor your levels. This will be done by either your family physician/medical facilities section director (if you are on Coumadin chronically) versus your orthopedic surgeon. Expect a phone call the day of or the day after your blood work is drawn to adjust your dose accordingly. B. There are a few signs you need to watch for after you are home. Call [facility] at [phone] if you experience any of the following: a. If you have a temperature of 101 degrees or higher. b. Sudden increase in pain in your hip not relieved by rest or pain medication. c. Any fluid or drainage from the incision; redness of the incision. d. Shortness of breath or chest pain. C. Call your physician if: a. Temperature is greater than 101 degrees (F). b. Pain is not relieved by prescribed pain medications. c. Increase drainage or redness from incision. d. Unanswered questions or concerns. D. Pain Medication: a. You will be prescribed pain medication upon discharge that should last till your first post-operative appointment. b. If you experience nausea and/or skin rash, discontinue this medication and contact our office for an alternative medication. c. Caution- narcotic pain medication can cause constipation. FOLLOW UP VISIT: Please call [facility] at [phone] to schedule a follow up appointment 10-14 days from the date of your surgery date) -Other follow up appointments 03/01/2019 10:00 AM Provider Melita Hayes DO Department Psychiatry, [facility] 03/01/2019 11:00 AM Provider Jose Alfaro MD Department General Internal Medicine [facility] 03/07/2019 11:00 AM Provider Jose Alfaro MD Department General Internal Medicine [facility] 03/28/2019 2:40 PM Provider Jose Alfaro MD Department General Internal Medicine [facility] PDMP was checked and no active narcotic prescriptions prior to this hospital stay. Patient discharged with prescription of acetaminophen 325 mg every 6 hours as needed for fever or mild pain, tramadol 50 mg every 6 hours as needed for moderate pain, oxycodone 5 mg every 6 hours as needed for severe pain. Patient should be on docusate and senna if on narcotic pain medications to help with bowel movements. After beeing on aspirin 81 mg twice a day for 4 weeks as instructed by orthopedics, patient may resume original aspirin 81 mg daily. Patient is on a prednisone taper: prednisone 10 mg daily up to 03/03/19 patient to be tapered down to 7.5 mg daily x 14 days, 5 mg x 14 days, 2.5 mg x 14 days chronic Anemia with acute blood loss anemia -baseline has chronic anemia -Hgb preop 10.8, however since the surgery the Hgb has been generally downtrending Hgb 9.5 to 9.3 to 8.2 to 8.8 to 8.2 -left thigh with swelling but does not have acute ecchymosis that is visually apparent, so blood loss may be from underlying bruising -FOBT negative, and recent hemoglobin levels does not require any blood transfusions Hypertension -lisinopril 20 mg daily 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 2 diabetes mellitus 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 tank 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 current use of insulin with hyperglycemia HbA1c 8.1 -admission glucose 319 -in the hospital, home dose metformin was held and home dose degludec- liraglutide, and was placed on sliding scale insulin with increases of long acting insulin up to 25 units BID -patient may resume home dose metformin and home dose insulin on discharge Polymyalgia rheumatica with current chronic use of systemic steroids -patient has been on a prednisone taper as outpatient, will continue prednisone 10 mg daily up to 03/03/19 patient to be tapered down to 7.5 mg daily x 14 days, 5 mg x 14 days, 2.5 mg x 14 days -continue prednisone as per recent home dosing and prescriptions have been made for the prednisone taper when patient goes to the rehabilitation facility mood disorder -Mood stable -continue home dose sertraline -outpatient psychiatry clinic follow up Discharge Diagnosis Closed intertrochanteric fracture of left hip; s/p Left Trochanteric Nail insertion, chronic Anemia with acute blood loss anemia, Type 2 diabetes mellitus with tank terminal gauger current use of insulin with hyperglycemia, hypertension, Polymyalgia rheumatica with current chronic use of systemic steroids DNR/DNI as per patient and Living WILL Daughter Ms. Maria Antonia Romero [phone]. Subjective Patient able to make bowel movement. comfortable. no distress. no shortness of breath. no abdomen pain. left thigh has ice. swelling of left calf is less than previous days. patient reports pain is controlled Physical Exam Constitutional: comfortable Eyes: PERRL, conjunctivae normal, anicteric sclerae EOM intact bilaterally ENMT: external ear and nose normal, oropharynx normal Neck: trachea midline, no thyromegaly normal visual inspection Respiratory: normal respiratory effort, lungs clear to auscultation Cardiovascular: RRR, no murmur, no edema Gastrointestinal (Abdomen): normal bowel sounds, soft, nontender, no hepatosplenomegaly Musculoskeletal: Head/Neck/Chest: normocephalic and head atraumatic Extremities: + lower leg abnormality (left calf swelling compared to the right, swelling is less) Neurologic: PERRL, EOMI, accommodation nl, no face palsy, no dysarthria Psychiatric: A+Ox3, euthymic affect Results & Data Vital Signs (Past 12 Hours) Vital Signs Temp Pulse Resp BP Pulse Ox Pulse Ox 02/28/19 07:17 98 02/28/19 06:39 36.4 C L 82 17 118/71 98 02/27/19 23:33 36.6 C 79 17 132/73 97 (1) Closed intertrochanteric fracture of left hip Encounter type: initial encounter Fracture alignment: nondisplaced Qualified Code(s): S72.145A - Nondisplaced intertrochanteric fracture of left femur, initial encounter for closed fracture
--- NOTE | 2019-02-28 10:36 | Discharge Summary ---
Date of Service February 28, 2019 Admission HPI Per Admitting Provider History obtained from patient, family, and records. Medical history significant for hypertension, hyperlipidemia, DM 2 insulin requiring, anxiety/mood disorder, chronic anemia (baseline hemoglobin of 11), PMR/inflammatory polyarthritis currently on steroid taper. Recent confinement August 2015 for chest pain. Stress test negative. Patient was walking outside her home today when she lost her balance subsequentl y landing on her left side. Patient noted left upper extremity and achy left hip pain worse with motion. No chest pain, S OB, syncope/LOC, head trauma. Medical History as above Bad side effects from recent steroid prescription as per patient account. Surgical History : BTL, tonsillectomy/adenectomy Baseline Functionality : Still able to do housework at home without rest/exertional chest pain, S OB prior to injury Family History : Heart disease, depression Personal/Social history : Non-smoker, no EtOH intake, retired [employer] employee Principal Diagnosis Closed intertrochanteric fracture of left hip; s/p Left Trochanteric Nail insertion, chronic Anemia with acute blood loss anemia, Type 2 diabetes mellitus with prison current use of insulin with hyperglycemia, hypertension, Polymyalgia rheumatica with current chronic use of systemic steroids Discharge Exam Constitutional comfortable Eyes PERRL, conjunctivae normal, anicteric sclerae EOM intact bilaterally ENMT external ear and nose normal, oropharynx normal Neck trachea midline, no thyromegaly normal visual inspection Respiratory normal respiratory effort, lungs clear to auscultation Cardiovascular RRR, no murmur, no edema Gastrointestinal (Abdomen) normal bowel sounds, soft, nontender, no hepatosplenomegaly Musculoskeletal Head/Neck/Chest: normocephalic and head atraumatic Extremities: + lower leg abnormality (left calf swelling compared to the right, left calf swelling is less today) Neurologic PERRL, EOMI, accommodation nl, no face palsy, no dysarthria Psychiatric A+Ox3, euthymic affect Discharge Data Allergies Allergy/AdvReac Type Severity Reaction Status Date / Time No Known Allergies Allergy Verified 02/24/19 10:36 Consultations 02/23/19 22:06 ED Decision to Admit Stat 02/23/19 22:17 Consult Case Management - Discharge Planning Routine Consult Case Management - Discharge Planning Routine Consult Orthopedic Surgery Routine Procedures Performed Operation Date: 02/24/19 12:40 Actual Procedures p Left Trochanteric Nail insertion (Left) - Ramiro Garcia MD Ordered Studies 02/24/19 13:00 FL fluoroscopy <1hr Routine FL hip LT 2-3V Routine Hospital Course (1) Closed intertrochanteric fracture of left hip: Closed intertrochanteric fracture of left hip; s/p Left Trochanteric Nail insertion -Secondary to mechanical fall - 02/24/19 s/p Left Trochanteric Nail insertion (Left) - Ramiro Garcia MD -post-operative state on 02/24/19: patient returns to medical slade. she is not able to feel her lower extremities bilaterally at this time. she is awake and in good spirits and alert and responding to questions appropriately. expect that the numbness will go away as she is further removed from effects of anesthesia -02/25/19 assessment: numbness of legs are gone, trial of void completed -02/28/19 Discharge to [facility] for physical rehabilitation ([facility] DISCHARGE INSTRUCTIONS: HIP FRACTURE (SELF CARE INSTRUCTIONS: A. You are to ambulate with a walker or crutches for approximately 6 weeks. B. You are WEIGHT BEARING TOLERATED on your operative lower extremity for at least 6 weeks. C. Wear low heeled shoes with non-slip soles D. Be sure that your floors are free of things that could trip you throw rugs, electrical cords, and small objects. Avoid wet and waxed floors, especially with crutches/walker/cane. E. Try to walk several times a day with rest periods between. F. You may shower 48 hours after surgery and get the incision area wet, but DO NOT soak or submerge incision area in water. (No baths, swimming pools, hot tubs) G. You may have a large, band-aid like dressing over your incision (Aquacel). This will remain on your incision for 7 days, and then can be removed. You CAN shower with this on. If incision is leaking through the dressing, please call the office . H. Do NOT apply soap or any ointment/lotions directly over incision. I. You may use ice as needed to operative site. SPECIAL CARE INSTRUCTIONS: VERY IMPORTANT TO READ AND REVIEW A. You may be at risk for phlebitis or blood clots. a. Wear surgical stockings (ARMAAN hose) for 2 weeks after surgery to improve circulation and reduce swelling. b. Take ASPIRIN 81 mg twice daily for 4 weeks or as directed. This is your blood thinner. c. If you are on Coumadin- you will have daily/weekly blood work to monitor your levels. This will be done by either your family physician/mortgage loan officer originator (if you are on Coumadin chronically) versus your orthopedic surgeon. Expect a phone call the day of or the day after your blood work is drawn to adjust your dose accordingly. B. There are a few signs you need to watch for after you are home. Call [facility] at [phone] if you experience any of the following: a. If you have a temperature of 101 degrees or higher. b. Sudden increase in pain in your hip not relieved by rest or pain medication. c. Any fluid or drainage from the incision; redness of the incision. d. Shortness of breath or chest pain. C. Call your physician if: a. Temperature is greater than 101 degrees (F). b. Pain is not relieved by prescribed pain medications. c. Increase drainage or redness from incision. d. Unanswered questions or concerns. D. Pain Medication: a. You will be prescribed pain medication upon discharge that should last till your first post-operative appointment. b. If you experience nausea and/or skin rash, discontinue this medication and contact our office for an alternative medication. c. Caution- narcotic pain medication can cause constipation. FOLLOW UP VISIT: Please call [facility] at [phone] to schedule a follow up appointment 10-14 days from the date of your surgery date) -Other follow up appointments 03/01/2019 10:00 AM Provider Melita Hayes DO Department Psychiatry, [facility] 03/01/2019 11:00 AM Provider Jose Alfaro MD Department General Internal Medicine [facility] 03/07/2019 11:00 AM Provider Jose Alfaro MD Department General Internal Medicine [facility] 03/28/2019 2:40 PM Provider Jose Alfaro MD Department General Internal Medicine [facility] PDMP was checked and no active narcotic prescriptions prior to this hospital stay. Patient discharged with prescription of acetaminophen 325 mg every 6 hours as needed for fever or mild pain, tramadol 50 mg every 6 hours as needed for moderate pain, oxycodone 5 mg every 6 hours as needed for severe pain. Patient should be on docusate and senna if on narcotic pain medications to help with bowel movements. After beeing on aspirin 81 mg twice a day for 4 weeks as instructed by orthopedics, patient may resume original aspirin 81 mg daily. Patient is on a prednisone taper: prednisone 10 mg daily up to 03/03/19 patient to be tapered down to 7.5 mg daily x 14 days, 5 mg x 14 days, 2.5 mg x 14 days chronic Anemia with acute blood loss anemia -baseline has chronic anemia -Hgb preop 10.8, however since the surgery the Hgb has been generally downtrending Hgb 9.5 to 9.3 to 8.2 to 8.8 to 8.2 -left thigh with swelling but does not have acute ecchymosis that is visually apparent, so blood loss may be from underlying bruising -FOBT negative, and recent hemoglobin levels does not require any blood transfusions Hypertension -lisinopril 20 mg daily Type 2 diabetes mellitus with prison current use of insulin with hyperglycemia HbA1c 8.1 -admission glucose 319 -in the hospital, home dose metformin was held and home dose [id number] utide, and was placed on sliding scale insulin with increases of long acting insulin up to 25 units BID -patient may resume home dose metformin and home dose insulin on discharge Polymyalgia rheumatica with current chronic use of systemic steroids -patient has been on a prednisone taper as outpatient, will continue prednisone 10 mg daily up to 03/03/19 patient to be tapered down to 7.5 mg daily x 14 days, 5 mg x 14 days, 2.5 mg x 14 days -continue prednisone as per recent home dosing and prescriptions have been made for the prednisone taper when patient goes to the rehabilitation facility mood disorder -Mood stable -continue home dose sertraline -outpatient psychiatry clinic follow up Discharge Diagnosis Closed intertrochanteric fracture of left hip; s/p Left Trochanteric Nail insertion, chronic Anemia with acute blood loss anemia, Type 2 diabetes mellitus with buttermaker continuous churn current use of insulin with hyperglycemia, hypertension, Polymyalgia rheumatica with current chronic use of systemic steroids DNR/DNI as per patient and Living WILL Daughter Ms. Maria Antonia Romero [phone]. Total Time Total Time Spent Total Time Spent (In Minutes): 40 minutes Total Time Includes: Examination of the Patient, Discharge Planning, Medication Reconciliation and Communication With Other Providers Discharge Plan Discharge Items Patient Disposition: Transfer Inpatient Rehab Fac Reason For Visit: L HIP FX Discharge Diagnosis: Closed intertrochanteric fracture of left hip; s/p Left Trochanteric Nail insertion, chronic Anemia with acute blood loss anemia, Type 2 diabetes mellitus with buttermaker continuous churn current use of insulin with hyperglycemia, hypertension, Polymyalgia rheumatica with current chronic use of systemic steroids Condition: Good Discharge Goals: Improve function Activity: Per 'Additional Instructions' section Non-emergency contact: Surgeon Call non-emergency contact if: your pain is not controlled, your temperature is above 101.5, your wound has increased redness and your wound has increased drainage Follow-up/Referrals: Jose Alfaro MD [Primary Care Provider] - Diet: Carb Consistent or DM2 Addtl Provider Instructions: Discharge to [facility] for physical rehabilitation [facility] DISCHARGE INSTRUCTIONS: HIP FRACTURE SELF CARE INSTRUCTIONS: A. You are to ambulate with a walker or crutches for approximately 6 weeks. B. You are WEIGHT BEARING TOLERATED on your operative lower extremity for at least 6 weeks. C. Wear low heeled shoes with non-slip soles D. Be sure that your floors are free of things that could trip you throw rugs, electrical cords, and small objects. Avoid wet and waxed floors, especially with crutches/walker/cane. E. Try to walk several times a day with rest periods between. F. You may shower 48 hours after surgery and get the incision area wet, but DO NOT soak or submerge incision area in water. (No baths, swimming pools, hot tubs) G. You may have a large, band-aid like dressing over your incision (Aquacel). This will remain on your incision for 7 days, and then can be removed. You CAN shower with this on. If incision is leaking through the dressing, please call the office . H. Do NOT apply soap or any ointment/lotions directly over incision. I. You may use ice as needed to operative site. SPECIAL CARE INSTRUCTIONS: VERY IMPORTANT TO READ AND REVIEW A. You may be at risk for phlebitis or blood clots. a. Wear surgical stockings (ARMAAN hose) for 2 weeks after surgery to improve circulation and reduce swelling. b. Take ASPIRIN 81 mg twice daily for 4 weeks or as directed. This is your blood thinner. c. If you are on Coumadin- you will have daily/weekly blood work to monitor your levels. This will be done by either your family physician/mortgage loan officer originator (if you are on Coumadin chronically) versus your orthopedic surgeon. Expect a phone call the day of or the day after your blood work is drawn to adjust your dose accordingly. B. There are a few signs you need to watch for after you are home. Call [facility] at [phone] if you experience any of the following: a. If you have a temperature of 101 degrees or higher. b. Sudden increase in pain in your hip not relieved by rest or pain medication. c. Any fluid or drainage from the incision; redness of the incision. d. Shortness of breath or chest pain. C. Call your physician if: a. Temperature is greater than 101 degrees (F). b. Pain is not relieved by prescribed pain medications. c. Increase drainage or redness from incision. d. Unanswered questions or concerns. D. Pain Medication: a. You will be prescribed pain medication upon discharge that should last till your first post-operative appointment. b. If you experience nausea and/or skin rash, discontinue this medication and contact our office for an alternative medication. c. Caution- narcotic pain medication can cause constipation. FOLLOW UP VISIT: Please call [facility] at [phone] to schedule a follow up appointment 10-14 days from the date of your surgery date Other follow up appointments 03/01/2019 10:00 AM Provider Melita Hayes DO Department Psychiatry, [facility] 03/01/2019 11:00 AM Provider Jose Alfaro MD Department General Internal Medicine [facility] 03/07/2019 11:00 AM Provider Jose Alfaro MD Department General Internal Medicine [facility] 03/28/2019 2:40 PM Provider Jose Alfaro MD Department General Internal Medicine [facility] PDMP was checked and no active narcotic prescriptions prior to this hospital stay. Patient discharged with prescription of acetaminophen 325 mg every 6 hours as needed for fever or mild pain, tramadol 50 mg every 6 hours as needed for moderate pain, oxycodone 5 mg every 6 hours as needed for severe pain. Patient should be on docusate and senna if on narcotic pain medications to help with bowel movements. After beeing on aspirin 81 mg twice a day for 4 weeks as instructed by orthopedics, patient may resume original aspirin 81 mg daily. Patient is on a prednisone taper: prednisone 10 mg daily up to 03/03/19 patient to be tapered down to 7.5 mg daily x 14 days, 5 mg x 14 days, 2.5 mg x 14 days Prescriptions: New sennosides [Senokot] 8.6 mg Tablet 17.2 mg PO HS 30 Days Qty: 60 RF: 0 docusate sodium 100 mg Capsule 100 mg PO BID 30 Days Qty: 60 RF: 0 acetaminophen 325 mg tablet 325 mg PO Q6H PRN (Reason: fever or mild pain) 5 Days Qty: 20 RF: 0 tramadol 50 mg Tablet 50 mg PO Q6H PRN (Reason: moderate pain) 4 Days Qty: 16 RF: 0 oxycodone 5 mg Tablet 5 mg PO Q6H PRN (Reason: severe pain) 4 Days Qty: 16 RF: 0 aspirin [Ecotrin Low Strength] 81 mg Tablet,Delayed Release (Dr/Ec) 81 mg PO BID 28 Days Qty: 56 RF: 0 prednisone 5 mg Tablet 10 mg PO UD 45 Days Qty: 132 RF: 0 Continued sertraline 100 mg Tablet 100 mg PO QAM RF: 0 allopurinol 100 mg Tablet 200 mg PO QAM RF: 0 metformin 1,000 mg Tablet 1,000 mg PO BID RF: 0 rosuvastatin 10 mg tablet 10 mg PO QAM RF: 0 fenofibrate nanocrystallized 48 mg tablet 48 mg PO QAM RF: 0 Xultophy 100/3.6 100 unit-3.6 mg /mL (3 mL) insulin pen 40 units subcut HS RF: 0 lisinopril 20 mg tablet 20 mg PO QAM RF: 0 metoprolol tartrate 50 mg Tablet 50 mg PO QAM RF: 0 Discontinued aspirin 81 mg Tablet,Delayed Release (Dr/Ec) 81 mg PO QAM RF: 0 cinnamon bark [Cinnamon] 500 mg Capsule 500 mg PO QAM RF: 0 prednisone 2.5 mg tablet See Rx Instructions .ROUTE .COMPLEX RF: 0 Stand-Alone Forms: [facility] Skilled Items Patient informed of condition?: Yes DNR: Yes Discharge Level of Care: Acute rehab Communicable Disease: No Discharge Prognosis: Stable Admission Data Admit Date/Time: 02/23/19 21:35 Attending Provider: Federico Rasmussen Admit Provider: Jose Martin Chester Primary Care Provider: Jose Alfaro Other Providers: Jose Martin Chester ; Clive Mai Service: Medical
[2019-02-28] MEDS: TRAMADOL HCL 50 MG TABLET PO PRN (11:05)
[2019-03-01] MEDS ORDERED: predniSONE 5 MG TAB PO SCH (09:00)
== END 2019-02-28 13:18 | DRG 481 ==
LOC: ED 18:12 → 3E 21:35